=== PATIENT | male | born 1950 | race Caucasian/White ===

== ENCOUNTER 2017-08-01 21:53 | Inpatient (IN) | payer MEDICARE ==
[~2017-08-01] VITALS: Ht 167.6 cm; Wt 59.0 kg
[2017-08-01 21:54] VITALS: O2SAT 99
[2017-08-01] MEDS ORDERED: DIPHTH/TETANUS/ACEL PERTUSSIS (BOOSTER) 0.5 ML VIAL/PFS IM ONE (21:59)
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
[2017-08-01 22:23] LABS: AUTOMATED NEUTROPHIL # 9.8 TH/MM3 (1.8-7.7); BASOPHIL # 0.1 TH/MM3 (0-0.2); BASOPHIL % 0.5 % (0.0-2.0); EOSINOPHIL # 0.1 TH/MM3 (0-0.4); EOSINOPHIL % 1.1 % (0.0-4.0); HEMATOCRIT 39.6 % (39.0-51.0); HEMOGLOBIN 12.9 GM/DL (13.0-17.0); LYMPH % 13.8 % (9.0-44.0); LYMPHOCYTE # 1.7 TH/MM3 (1.0-4.8); MEAN CELL VOLUME 91.9 FL (80.0-100.0); MEAN CORPUSCULAR HEMOGLOBIN 29.8 PG (27.0-34.0); MEAN CORPUSCULAR HGB CONC 32.5 % (32.0-36.0); MEAN PLATELET VOLUME 8.1 FL (7.0-11.0); MONOCYTE # 0.8 TH/MM3 (0-0.9); NEUT % 78.6 % (16.0-70.0); PLATELET COUNT 258 TH/MM3 (150-450); RED BLOOD COUNT 4.31 MIL/MM3 (4.50-5.90); RED CELL DISTRIBUTION WIDTH 15.1 % (11.6-17.2); WHITE BLOOD COUNT 12.5 TH/MM3 (4.0-11.0)
[2017-08-01] MEDS ORDERED: PROPOFOL 1000 MG/100 ML INJ 100 ML ONE (22:26)
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
[2017-08-01 22:46] LABS: INTERNATIONAL NORMALIZED RATIO 1.2 RATIO; PROTHROMBIN TIME - PATIENT 11.9 SEC (9.8-11.6)
[2017-08-01] MEDS ORDERED: IOHEXOL 350 MG/ML 10 ML VIAL (for RAD DIAG) IVCONTRAST ONE (22:48)
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
[2017-08-01] MEDS ORDERED: ONDANSETRON HCL 4 MG/2 ML VIAL IV PUSH PRN (23:00)
[2017-08-01] MEDS ORDERED: NURSING INFORMATION XX SCH (23:00)
[2017-08-01] MEDS ORDERED: CHLORHEXIDINE GLUCONATE 2 % 1 PACK (2 CLOTHS) TOP PRN (23:00)
[2017-08-01] MEDS ORDERED: MORPHINE SULFATE 8 MG/ML INJ IV PUSH PRN (23:00)
[2017-08-01] MEDS ORDERED: ENALAPRILAT 1.25 MG/ML VIAL IV PUSH PRN (23:00)
[2017-08-01] MEDS ORDERED: PANTOPRAZOLE SODIUM 40 MG VIAL IVP SCH (23:00)
[2017-08-01] MEDS ORDERED: DOCUSATE SODIUM 100 MG CAP PO SCH (23:00)
[2017-08-01 23:05] VITALS: O2SAT 100
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
[2017-08-01 23:55] LABS: BILIRUBIN, URINE NEG (NEG); BLOOD, URINE LARGE (NEG); GLUCOSE,URINE NEG (NEG); KETONE, URINE 10 mg/dL (NEG); MUCUS URINE FEW /lpf (OCC); NITRITE,URINE NEG (NEG); PH, URINE 5.5 (5.0-8.5); URINE LEUKOCYTE ESTERASE NEG (NEG)
[2017-08-02] VITALS (19 sets, daily range): BP systolic 108–127; BP diastolic 55–64; PULSE 74–96; RESP 16–26; TEMP 97.6–99.2; O2SAT 100
[2017-08-02 00:01] LABS: URINE COLOR LIGHT-RED (YELLW/STRAW)
[2017-08-02] MEDS: SODIUM CHLOR 0.9% 1000 ML INJ 1,000 ML IV SCH ×4 (00:57→23:50)
[2017-08-02] MEDS: levETIRAcetam 500 MG/NS 100 ML IV SCH ×6 (00:58→23:50)
[2017-08-02] MEDS: CHLORHEXIDINE GLUCONATE 2 % 1 PACK (2 CLOTHS) TOP SCH ×2 (00:58→23:50)
[2017-08-02] MEDS: BACITRACIN TOP OINT 15 GM TUBE TOP SCH ×3 (00:58→21:15)
[2017-08-02] MEDS: fentaNYL 2,500 MCG/NS 250 ML IV PRN ×2 (00:58→23:51)
[2017-08-02] MEDS: PROPOFOL 1000 MG/100 ML IV PRN ×3 (00:59→14:15)
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
[2017-08-02 03:44] LABS: BICARBONATE 25.1 MEQ/L (21.0-32.0); CALCIUM 7.7 MG/DL (8.5-10.1); CREATININE 1.02 MG/DL (0.60-1.30)
[2017-08-02 03:47] LABS: AUTOMATED NEUTROPHIL # 13.4 TH/MM3 (1.8-7.7); BASOPHIL % 0.3 % (0.0-2.0); EOSINOPHIL % 0.2 % (0.0-4.0); HEMATOCRIT 39.6 % (39.0-51.0); LYMPH % 8.1 % (9.0-44.0); LYMPHOCYTE # 1.3 TH/MM3 (1.0-4.8); MEAN CELL VOLUME 90.7 FL (80.0-100.0); MEAN CORPUSCULAR HEMOGLOBIN 29.6 PG (27.0-34.0); MEAN CORPUSCULAR HGB CONC 32.7 % (32.0-36.0); MEAN PLATELET VOLUME 8.8 FL (7.0-11.0); MONO % 7.3 % (0.0-8.0); MONOCYTE # 1.2 TH/MM3 (0-0.9); NEUT % 84.1 % (16.0-70.0); PLATELET COUNT 254 TH/MM3 (150-450); RED BLOOD COUNT 4.37 MIL/MM3 (4.50-5.90); RED CELL DISTRIBUTION WIDTH 14.9 % (11.6-17.2); WHITE BLOOD COUNT 15.9 TH/MM3 (4.0-11.0)
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
[2017-08-02] MEDS ORDERED: BISACODYL 10 MG SUPP RECTAL PRN (06:45)
[2017-08-02] MEDS ORDERED: POTASSIUM PHOSPHATE MONOBASIC 500 MG TAB PO/TUBE PRN (06:45)
[2017-08-02] MEDS ORDERED: POTASSIUM PHOSPHATE MONOBASIC 500 MG TAB PO PRN (06:45)
[2017-08-02] MEDS ORDERED: MAGNESIUM OXIDE 400 MG TAB PO PRN (06:45)
[2017-08-02] MEDS ORDERED: POTASSIUM CHLOR 20 MEQ PREMIX 100 ML IV PRN (06:45)
[2017-08-02] MEDS ORDERED: POTASSIUM PHOSPHATE INJ 30 MMOL in SODIUM CHLOR 0.9% 250 ML INJ 250 ML IV PRN (06:45)
[2017-08-02] MEDS ORDERED: MAGNESIUM SULFATE INJ 2 GM in SODIUM CHLORIDE 0.9% INJ 96 ML IV PRN (06:45)
[2017-08-02] MEDS ORDERED: SODIUM PHOSPHATE INJ 30 MMOL in SODIUM CHLOR 0.9% 250 ML INJ 240 ML IV PRN (06:45)
[2017-08-02] MEDS ORDERED: MAGNESIUM SULFATE INJ 4 GM in SODIUM CHLORIDE 0.9% INJ 92 ML IV PRN (06:45)
[2017-08-02] MEDS ORDERED: POTASSIUM CHLOR 40 MEQ PREMIX 100 ML IV PRN ×2 (06:45)
[2017-08-02] MEDS: LACTULOSE SYRUP 20 GM/30 ML CUP PO SCH (09:00)
[2017-08-02] MEDS: DOCUSATE SODIUM 50 MG/SENNA 8.6 MG TAB PO SCH ×2 (09:00→21:00)
[2017-08-02] MEDS: SODIUM CHLORIDE FLUSH BID IV FLUSH SCH ×2 (09:00→21:15)
[2017-08-02] MEDS: CHLORHEXIDINE 0.12% (ORAL KIT) 15 ML CUP MT SCH ×2 (09:04→20:56)
[2017-08-02 09:35] LABS: MAGNESIUM 1.7 MG/DL (1.5-2.5)
[2017-08-02 09:36] LABS: PHOSPHORUS 2.2 MG/DL (2.5-4.9)
[2017-08-02] MEDS ORDERED: Vancomycin Consult Pharmacy 1 EA OTHER SCH (09:45)
[2017-08-02] MEDS: PIPERACIL-TAZO 4.5 GM PREMIX 100 ML IV SCH ×3 (10:16→21:15)
[2017-08-02] MEDS: VANCOMYCIN INJ 1,250 MG in SODIUM CHLOR 0.9% 250 ML INJ 250 ML IV SCH (12:03)
[2017-08-02] MEDS ORDERED: GADODIAMIDE PF 287 MG/ML 20 ML VIAL (for RAD MRI) IV PUSH ONE (14:21)
--- NOTE | 2017-08-02 14:34 | RADRPT ---
EXAM DATE/TIME: 08/02/2017 13:23 [facility] COMPARISON: CT BRAIN W/O CONTRAST, August 01, 2017, 22:15. INDICATIONS : Follow up, small acute left frontal subarachnoid or subdural blood RADIATION DOSE: 56.35 CTDIvol (mGy) MEDICAL HISTORY : None SURGICAL HISTORY : None. ENCOUNTER: Subsequent ACUITY: 2 days PAIN SCALE: 4/10 LOCATION: cranial TECHNIQUE: Multiple contiguous axial images were obtained of the head. Using automated exposure control and adj ustment of the mA and/or kV according to patient size, radiation dose was kept as low as reasonably a chievable to obtain optimal diagnostic quality images. DICOM format image data is available electro nically for review and comparison. FINDINGS: There is no evidence of acute cortical infarction, acute hemorrhage, mass effect or midline shift. No frontal lobe hematoma or subarachnoid hemorrhage is identified. Mild atrophy is present. Scalp hemat deanne is seen. CONCLUSION: 1. Atrophy. No evidence of acute intracranial hemorrhage. Ciro Steen MD on August 02, 2017 at 14:30 Board Certified Radiologist. This report was verified electronically.
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
[2017-08-02] MEDS ORDERED: CHLORHEXIDINE 0.12% (ORAL KIT) 15 ML CUP MT SCH (20:00)
[2017-08-03] VITALS (19 sets, daily range): BP systolic 96–138; BP diastolic 51–64; PULSE 62–76; RESP 16; TEMP 98–99.5; O2SAT 99–100
[2017-08-03] MEDS: PROPOFOL 1000 MG/100 ML IV PRN (03:19)
[2017-08-03] MEDS: PIPERACIL-TAZO 4.5 GM PREMIX 100 ML IV SCH ×4 (03:19→21:51)
[2017-08-03 04:52] LABS: AUTOMATED NEUTROPHIL # 9.2 TH/MM3 (1.8-7.7); BASOPHIL % 0.3 % (0.0-2.0); EOSINOPHIL % 0.3 % (0.0-4.0); HEMOGLOBIN 10.6 GM/DL (13.0-17.0); LYMPH % 5.6 % (9.0-44.0); LYMPHOCYTE # 0.6 TH/MM3 (1.0-4.8); MEAN CELL VOLUME 92.1 FL (80.0-100.0); MEAN CORPUSCULAR HEMOGLOBIN 30.4 PG (27.0-34.0); MEAN CORPUSCULAR HGB CONC 33.1 % (32.0-36.0); MEAN PLATELET VOLUME 8.4 FL (7.0-11.0); MONOCYTE # 0.9 TH/MM3 (0-0.9); NEUT % 85.8 % (16.0-70.0); PLATELET COUNT 176 TH/MM3 (150-450); RED BLOOD COUNT 3.47 MIL/MM3 (4.50-5.90); RED CELL DISTRIBUTION WIDTH 15.3 % (11.6-17.2); WHITE BLOOD COUNT 10.7 TH/MM3 (4.0-11.0)
[2017-08-03 05:17] LABS: BICARBONATE 22.3 MEQ/L (21.0-32.0); CALCIUM 7.5 MG/DL (8.5-10.1); CREATININE 0.97 MG/DL (0.60-1.30)
--- NOTE | 2017-08-03 05:57 | RADRPT ---
EXAM DATE/TIME: 08/03/2017 04:57 [place] COMPARISON: CHEST SINGLE AP, August 02, 2017, 4:27. INDICATIONS : Short of breath. MEDICAL HISTORY : None. SURGICAL HISTORY : None. ENCOUNTER: Subsequent ACUITY: 3 days PAIN SCORE: Non-responsive. LOCATION: Bilateral chest FINDINGS: A single view of the chest demonstrates minimal bibasilar densities. Endotracheal tube and nasogastri c tube unchanged.. Osseous structures are intact. CONCLUSION: Bibasilar densities likely atelectasis. Otoniel Cerda MD on August 03, 2017 at 5:55 Board Certified Radiologist. This report was verified electronically.
[2017-08-03] MEDS: VANCOMYCIN INJ 1,250 MG in SODIUM CHLOR 0.9% 250 ML INJ 250 ML IV SCH (05:58)
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
[2017-08-03] MEDS: CHLORHEXIDINE 0.12% (ORAL KIT) 15 ML CUP MT SCH ×2 (08:19→20:00)
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
[2017-08-03] MEDS: SODIUM CHLOR 0.9% 1000 ML INJ 1,000 ML IV SCH (09:30)
[2017-08-03] MEDS: LACTULOSE SYRUP 20 GM/30 ML CUP PO SCH (10:05)
[2017-08-03] MEDS: NEOMYCIN/POLYMYXIN/BACITRACIN OINT 15 GM TUBE TOPICAL SCH (10:05)
[2017-08-03] MEDS: SODIUM HYPOCHLORITE 0.125% 500 ML BTL TOPICAL SCH (10:05)
[2017-08-03] MEDS: DOCUSATE SODIUM 50 MG/SENNA 8.6 MG TAB PO SCH ×2 (10:05→21:50)
[2017-08-03] MEDS: ASPIRIN 325 MG TAB PO SCH (10:05)
[2017-08-03] MEDS: FAMOTIDINE 40 MG/5 ML LIQ 50 ML BTL OG-TUBE SCH ×2 (10:05→21:51)
[2017-08-03] MEDS: BACITRACIN TOP OINT 15 GM TUBE TOP SCH ×2 (10:05→21:51)
[2017-08-03] MEDS: SODIUM CHLORIDE FLUSH BID IV FLUSH SCH ×2 (10:05→21:00)
[2017-08-03] MEDS: ENOXAPARIN SODIUM 40 MG/0.4 ML SYRINGE SQ SCH (11:01)
[2017-08-03] MEDS: levETIRAcetam 500 MG/NS 100 ML IV SCH ×2 (12:25)
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
[2017-08-04] VITALS (19 sets, daily range): BP systolic 116–139; BP diastolic 55–63; PULSE 73–89; RESP 16; TEMP 98–99.5; O2SAT 97–100
[2017-08-04] MEDS: SODIUM CHLOR 0.9% 1000 ML INJ 1,000 ML IV SCH ×3 (01:32→21:40)
[2017-08-04] MEDS: fentaNYL 2,500 MCG/NS 250 ML IV PRN (02:01)
[2017-08-04] MEDS: CHLORHEXIDINE GLUCONATE 2 % 1 PACK (2 CLOTHS) TOP SCH (03:34)
[2017-08-04] MEDS: PIPERACIL-TAZO 4.5 GM PREMIX 100 ML IV SCH ×4 (04:52→21:40)
--- NOTE | 2017-08-04 05:34 | RADRPT ---
EXAM DATE/TIME: 08/04/2017 04:45 [place] COMPARISON: CHEST SINGLE AP, August 03, 2017, 4:57. INDICATIONS : Shortness of breath. MEDICAL HISTORY : Non-responsive SURGICAL HISTORY : Non-responsive ENCOUNTER: Subsequent ACUITY: 4 - 6 days PAIN SCORE: Non-responsive. LOCATION: Bilateral chest FINDINGS: A single view of the chest demonstrates minimal right basilar density. Endotracheal tube and nasogast odette tube unchanged. Osseous structures are intact. CONCLUSION: Minimal right basilar density. Otoniel Cerda MD on August 04, 2017 at 5:32 Board Certified Radiologist. This report was verified electronically.
[2017-08-04 06:06] LABS: AUTOMATED NEUTROPHIL # 9.4 TH/MM3 (1.8-7.7); BASOPHIL # 0.1 TH/MM3 (0-0.2); BASOPHIL % 0.6 % (0.0-2.0); EOSINOPHIL % 0.5 % (0.0-4.0); HEMATOCRIT 27.6 % (39.0-51.0); HEMOGLOBIN 9.2 GM/DL (13.0-17.0); LYMPHOCYTE # 0.7 TH/MM3 (1.0-4.8); MEAN CELL VOLUME 91.4 FL (80.0-100.0); MEAN CORPUSCULAR HEMOGLOBIN 30.4 PG (27.0-34.0); MEAN CORPUSCULAR HGB CONC 33.3 % (32.0-36.0); MEAN PLATELET VOLUME 8.7 FL (7.0-11.0); MONO % 7.2 % (0.0-8.0); MONOCYTE # 0.8 TH/MM3 (0-0.9); NEUT % 85.7 % (16.0-70.0); PLATELET COUNT 187 TH/MM3 (150-450); RED BLOOD COUNT 3.02 MIL/MM3 (4.50-5.90)
[2017-08-04 06:35] LABS: CALCIUM 7.9 MG/DL (8.5-10.1); CREATININE 1.5 MG/DL (0.60-1.30)
[2017-08-04] MEDS: CHLORHEXIDINE 0.12% (ORAL KIT) 15 ML CUP MT SCH ×2 (08:00→21:40)
[2017-08-04] MEDS: SODIUM CHLORIDE FLUSH BID IV FLUSH SCH ×2 (08:09→21:00)
[2017-08-04] MEDS: SODIUM HYPOCHLORITE 0.125% 500 ML BTL TOPICAL SCH (08:10)
[2017-08-04] MEDS: NEOMYCIN/POLYMYXIN/BACITRACIN OINT 15 GM TUBE TOPICAL SCH (08:10)
[2017-08-04] MEDS: BACITRACIN TOP OINT 15 GM TUBE TOP SCH ×2 (08:10→21:00)
[2017-08-04] MEDS: LACTULOSE SYRUP 20 GM/30 ML CUP PO SCH (09:00)
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
[2017-08-04] MEDS: FAMOTIDINE 40 MG/5 ML LIQ 50 ML BTL OG-TUBE SCH ×2 (10:47→21:00)
[2017-08-04] MEDS: ASPIRIN 325 MG TAB PO SCH (10:47)
[2017-08-04] MEDS: ENOXAPARIN SODIUM 40 MG/0.4 ML SYRINGE SQ SCH (10:48)
[2017-08-04] MEDS: DOCUSATE SODIUM 50 MG/SENNA 8.6 MG TAB PO SCH ×2 (10:48→21:40)
[2017-08-04] MEDS: levETIRAcetam 500 MG/NS 100 ML IV SCH ×4 (10:48)
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
[2017-08-04] MEDS: PROPOFOL 1000 MG/100 ML IV PRN (13:25)
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
[2017-08-04] MEDS ORDERED: PHARMACY ORDERED LAB ONE (17:45)
[2017-08-04] MEDS: VANCOMYCIN INJ 1,250 MG in SODIUM CHLOR 0.9% 250 ML INJ 250 ML IV SCH ×3 (18:05)
[2017-08-05] VITALS (22 sets, daily range): BP systolic 118–163; BP diastolic 58–75; PULSE 85–110; RESP 16–24; TEMP 98.1–99.7; O2SAT 93–100
[2017-08-05] MEDS: PIPERACIL-TAZO 4.5 GM PREMIX 100 ML IV SCH ×4 (04:00→22:03)
[2017-08-05] MEDS: CHLORHEXIDINE GLUCONATE 2 % 1 PACK (2 CLOTHS) TOP SCH ×2 (04:00→19:15)
[2017-08-05] MEDS: PROPOFOL 1000 MG/100 ML IV PRN (04:40)
[2017-08-05] MEDS ORDERED: PHARMACY ORDERED LAB ONE (05:00)
[2017-08-05] MEDS: SODIUM CHLOR 0.9% 1000 ML INJ 1,000 ML IV SCH ×2 (05:51→16:57)
[2017-08-05] MEDS ORDERED: VANCOMYCIN INJ 1,250 MG in SODIUM CHLOR 0.9% 250 ML INJ 250 ML IV SCH (06:00)
--- NOTE | 2017-08-05 06:09 | RADRPT ---
EXAM DATE/TIME: 08/05/2017 04:27 [facility] COMPARISON: CHEST SINGLE AP, August 04, 2017, 4:45. INDICATIONS : Shortness of breath. MEDICAL HISTORY : Non-responsive SURGICAL HISTORY : Non-responsive ENCOUNTER: Subsequent ACUITY: 4 - 6 days PAIN SCORE: Non-responsive. LOCATION: Bilateral chest FINDINGS: A single view of the chest demonstrates a minimal bibasilar densities. Heart normal in size. Endotrac heal tube nasogastric tube unchanged. The cardiomediastinal contours are unremarkable. Osseous stru ctures are intact. CONCLUSION: Minimal bibasilar densities. Otoniel Cerda MD on August 05, 2017 at 6:08 Board Certified Radiologist. This report was verified electronically.
[2017-08-05 07:26] LABS: BASOPHIL # 0.1 TH/MM3 (0-0.2); BASOPHIL % 0.6 % (0.0-2.0); EOSINOPHIL # 0.1 TH/MM3 (0-0.4); EOSINOPHIL % 1.7 % (0.0-4.0); HEMATOCRIT 21.3 % (39.0-51.0); HEMOGLOBIN 7.2 GM/DL (13.0-17.0); LYMPH % 8.3 % (9.0-44.0); LYMPHOCYTE # 0.7 TH/MM3 (1.0-4.8); MEAN CELL VOLUME 91.1 FL (80.0-100.0); MEAN CORPUSCULAR HEMOGLOBIN 30.6 PG (27.0-34.0); MEAN CORPUSCULAR HGB CONC 33.7 % (32.0-36.0); MEAN PLATELET VOLUME 8.9 FL (7.0-11.0); MONOCYTE # 0.6 TH/MM3 (0-0.9); NEUT % 82.4 % (16.0-70.0); PLATELET COUNT 187 TH/MM3 (150-450); RED BLOOD COUNT 2.34 MIL/MM3 (4.50-5.90); RED CELL DISTRIBUTION WIDTH 15.1 % (11.6-17.2); WHITE BLOOD COUNT 8.5 TH/MM3 (4.0-11.0)
[2017-08-05 07:44] LABS: BICARBONATE 25.4 MEQ/L (21.0-32.0); CALCIUM 7.9 MG/DL (8.5-10.1); CREATININE 1.49 MG/DL (0.60-1.30)
[2017-08-05 07:56] LABS: VANCOMYCIN TROUGH 18.1 MCG/ML (5.0-10.0)
[2017-08-05] MEDS: CHLORHEXIDINE 0.12% (ORAL KIT) 15 ML CUP MT SCH ×2 (08:00→20:00)
[2017-08-05] MEDS: SODIUM CHLORIDE FLUSH BID IV FLUSH SCH ×2 (08:30→20:43)
[2017-08-05] MEDS: DOCUSATE SODIUM 50 MG/SENNA 8.6 MG TAB PO SCH ×2 (09:00→20:44)
[2017-08-05] MEDS: ASPIRIN 325 MG TAB PO SCH (09:00)
[2017-08-05] MEDS: SODIUM HYPOCHLORITE 0.125% 500 ML BTL TOPICAL SCH (09:00)
[2017-08-05] MEDS: NEOMYCIN/POLYMYXIN/BACITRACIN OINT 15 GM TUBE TOPICAL SCH (09:00)
[2017-08-05] MEDS: LACTULOSE SYRUP 20 GM/30 ML CUP PO SCH (09:00)
[2017-08-05] MEDS: BACITRACIN TOP OINT 15 GM TUBE TOP SCH ×2 (09:00→20:43)
[2017-08-05] MEDS ORDERED: SODIUM CHLOR 0.9% 250 ML INJ 250 ML IV ONE (09:30)
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
[2017-08-05] MEDS: ENOXAPARIN SODIUM 40 MG/0.4 ML SYRINGE SQ SCH (09:41)
[2017-08-05] MEDS: FAMOTIDINE 40 MG/5 ML LIQ 50 ML BTL OG-TUBE SCH ×2 (09:41→20:44)
[2017-08-05] MEDS ORDERED: IOHEXOL 350 MG/ML 10 ML VIAL (for RAD DIAG) IVCONTRAST ONE (11:05)
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
[2017-08-05] MEDS: levETIRAcetam 500 MG/NS 100 ML IV SCH ×6 (12:47→23:56)
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
[2017-08-05] MEDS: FREE WATER G-TUBE SCH ×3 (14:00→23:56)
[2017-08-05] MEDS: VANCOMYCIN INJ 1,250 MG in SODIUM CHLOR 0.9% 250 ML INJ 250 ML IV SCH (18:24)
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
[2017-08-06] VITALS (19 sets, daily range): BP systolic 123–153; BP diastolic 5–75; PULSE 81–105; RESP 15–17; TEMP 97.9–99.4; O2SAT 100
[2017-08-06] MEDS: SODIUM CHLOR 0.9% 1000 ML INJ 1,000 ML IV SCH (01:05)
[2017-08-06] MEDS: PIPERACIL-TAZO 4.5 GM PREMIX 100 ML IV SCH ×3 (04:13→15:50)
[2017-08-06 05:28] LABS: AUTOMATED NEUTROPHIL # 6.6 TH/MM3 (1.8-7.7); BASOPHIL % 0.5 % (0.0-2.0); EOSINOPHIL # 0.2 TH/MM3 (0-0.4); EOSINOPHIL % 2.3 % (0.0-4.0); HEMATOCRIT 26.2 % (39.0-51.0); LYMPH % 6.3 % (9.0-44.0); LYMPHOCYTE # 0.5 TH/MM3 (1.0-4.8); MEAN CELL VOLUME 86.5 FL (80.0-100.0); MEAN CORPUSCULAR HEMOGLOBIN 29.8 PG (27.0-34.0); MEAN CORPUSCULAR HGB CONC 34.5 % (32.0-36.0); MEAN PLATELET VOLUME 8.5 FL (7.0-11.0); MONO % 7.8 % (0.0-8.0); MONOCYTE # 0.6 TH/MM3 (0-0.9); NEUT % 83.1 % (16.0-70.0); PLATELET COUNT 205 TH/MM3 (150-450); RED BLOOD COUNT 3.03 MIL/MM3 (4.50-5.90); RED CELL DISTRIBUTION WIDTH 17.2 % (11.6-17.2); WHITE BLOOD COUNT 7.9 TH/MM3 (4.0-11.0)
[2017-08-06] MEDS: FREE WATER G-TUBE SCH ×3 (05:40→18:00)
[2017-08-06 05:51] LABS: ALBUMIN 1.8 GM/DL (3.4-5.0); ALT (GPT) 22 U/L (12-78); AST (GOT) 40 U/L (15-37); BICARBONATE 26.3 MEQ/L (21.0-32.0); BLOOD UREA NITROGEN 14 MG/DL (7-18); CALCIUM 7.9 MG/DL (8.5-10.1); CHLORIDE 118 MEQ/L (98-107); CREATININE 1.32 MG/DL (0.60-1.30); GLOMERULAR FILTRATION RATE 54 ML/MIN (>89); GLUCOSE,RANDOM 137 MG/DL (74-106); SODIUM (NA) 151 MEQ/L (136-145)
[2017-08-06 05:53] LABS: ALKALINE PHOSPHATASE 149 U/L (45-117); TOTAL BILIRUBIN ADULT 0.6 MG/DL (0.2-1.0); TOTAL PROTEIN 5.7 GM/DL (6.4-8.2)
[2017-08-06] MEDS: CHLORHEXIDINE 0.12% (ORAL KIT) 15 ML CUP MT SCH ×2 (08:00→20:00)
[2017-08-06] MEDS: SODIUM CHLORIDE FLUSH BID IV FLUSH SCH ×2 (08:57→21:00)
[2017-08-06] MEDS: NEOMYCIN/POLYMYXIN/BACITRACIN OINT 15 GM TUBE TOPICAL SCH (08:58)
[2017-08-06] MEDS: BACITRACIN TOP OINT 15 GM TUBE TOP SCH ×2 (08:58→21:00)
[2017-08-06] MEDS: SODIUM HYPOCHLORITE 0.125% 500 ML BTL TOPICAL SCH (08:58)
[2017-08-06] MEDS: FAMOTIDINE 40 MG/5 ML LIQ 50 ML BTL OG-TUBE SCH ×2 (09:00→21:00)
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
[2017-08-06] MEDS ORDERED: FUROSEMIDE 40 MG/4 ML VIAL IV PUSH ONE ×2 (10:00→16:00)
[2017-08-06] MEDS: fentaNYL 2,500 MCG/NS 250 ML IV PRN (10:00)
[2017-08-06] MEDS ORDERED: BISACODYL 10 MG SUPP RECTAL ONE (10:00)
[2017-08-06] MEDS: DOCUSATE SODIUM 50 MG/SENNA 8.6 MG TAB PO SCH ×2 (10:05→21:00)
[2017-08-06] MEDS: LACTULOSE SYRUP 20 GM/30 ML CUP PO SCH (10:06)
[2017-08-06] MEDS: ASPIRIN 325 MG TAB PO SCH (10:06)
[2017-08-06] MEDS: ENOXAPARIN SODIUM 40 MG/0.4 ML SYRINGE SQ SCH (12:26)
[2017-08-06] MEDS: levETIRAcetam 500 MG/NS 100 ML IV SCH ×2 (12:26)
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
[2017-08-06] MEDS: PROPOFOL 1000 MG/100 ML IV PRN (15:00)
[2017-08-06] MEDS: VANCOMYCIN INJ 1,250 MG in SODIUM CHLOR 0.9% 250 ML INJ 250 ML IV SCH (18:15)
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
[2017-08-06] MEDS: RESP: ALBUTEROL 2.5 MG/IPRATROPIUM 0.5 MG NEB (PRN) NEB (20:32)
[2017-08-06] MEDS: cefTRIAXone INJ 1,000 MG in SODIUM CHLORIDE 0.9% INJ 100 ML IV SCH (21:20)
[2017-08-07] VITALS (18 sets, daily range): BP systolic 125–164; BP diastolic 61–77; PULSE 73–118; RESP 16–26; TEMP 98.6–99.5; O2SAT 99–100
[2017-08-07] MEDS: levETIRAcetam 500 MG/NS 100 ML IV SCH ×4 (00:04→11:01)
[2017-08-07] MEDS: CHLORHEXIDINE GLUCONATE 2 % 1 PACK (2 CLOTHS) TOP SCH (04:00)
--- NOTE | 2017-08-07 04:19 | RADRPT ---
EXAM DATE/TIME: 08/07/2017 03:38 [place] COMPARISON: CHEST SINGLE AP, August 05, 2017, 4:27. INDICATIONS : Shortness of breath MEDICAL HISTORY : Non-responsive SURGICAL HISTORY : Non-responsive ENCOUNTER: Subsequent ACUITY: 1 week PAIN SCORE: Non-responsive. LOCATION: Bilateral chest FINDINGS: The cardiac silhouette is enlarged in transverse diameter. There is prominence of the central pulmona ry vasculature with indistinct vascular margins compatible with vascular congestion but no evidence o f overt failure. No pleural effusions are identified. CONCLUSION: 1. Cardiomegaly and findings of vascular congestion without overt failure. The findings are similar t o the prior exam. Ciro Steen MD on August 07, 2017 at 4:17 Board Certified Radiologist. This report was verified electronically.
[2017-08-07] MEDS: FREE WATER G-TUBE SCH ×4 (05:12→17:02)
[2017-08-07] MEDS: PROPOFOL 1000 MG/100 ML IV PRN (05:12)
[2017-08-07 05:35] LABS: AUTOMATED NEUTROPHIL # 7.1 TH/MM3 (1.8-7.7); BASOPHIL % 0.2 % (0.0-2.0); EOSINOPHIL # 0.1 TH/MM3 (0-0.4); EOSINOPHIL % 1.6 % (0.0-4.0); HEMATOCRIT 26.4 % (39.0-51.0); HEMOGLOBIN 9.2 GM/DL (13.0-17.0); LYMPH % 8.1 % (9.0-44.0); LYMPHOCYTE # 0.7 TH/MM3 (1.0-4.8); MEAN CELL VOLUME 85.7 FL (80.0-100.0); MEAN CORPUSCULAR HEMOGLOBIN 29.7 PG (27.0-34.0); MEAN CORPUSCULAR HGB CONC 34.7 % (32.0-36.0); MEAN PLATELET VOLUME 8.5 FL (7.0-11.0); MONO % 8.9 % (0.0-8.0); MONOCYTE # 0.8 TH/MM3 (0-0.9); NEUT % 81.2 % (16.0-70.0); PLATELET COUNT 270 TH/MM3 (150-450); RED BLOOD COUNT 3.08 MIL/MM3 (4.50-5.90); RED CELL DISTRIBUTION WIDTH 16.7 % (11.6-17.2); WHITE BLOOD COUNT 8.7 TH/MM3 (4.0-11.0)
[2017-08-07 06:16] LABS: ALKALINE PHOSPHATASE 163 U/L (45-117); ALT (GPT) 29 U/L (12-78); AST (GOT) 47 U/L (15-37); BICARBONATE 30.8 MEQ/L (21.0-32.0); BLOOD UREA NITROGEN 19 MG/DL (7-18); CALCIUM 8.8 MG/DL (8.5-10.1); CHLORIDE 111 MEQ/L (98-107); CREATININE 1.57 MG/DL (0.60-1.30); GLOMERULAR FILTRATION RATE 44 ML/MIN (>89); GLUCOSE,RANDOM 144 MG/DL (74-106); SODIUM (NA) 150 MEQ/L (136-145); TOTAL BILIRUBIN ADULT 0.5 MG/DL (0.2-1.0); TOTAL PROTEIN 6.5 GM/DL (6.4-8.2)
[2017-08-07] MEDS: POTASSIUM CHLOR 20 MEQ PREMIX 100 ML IV PRN ×2 (06:38→08:36)
[2017-08-07] MEDS: POTASSIUM CHLORIDE 20 MEQ PWD PACKET PO PRN ×2 (06:38→20:21)
[2017-08-07] MEDS: SODIUM CHLORIDE FLUSH BID IV FLUSH SCH ×2 (08:29→20:20)
[2017-08-07] MEDS: DOCUSATE SODIUM 50 MG/SENNA 8.6 MG TAB PO SCH ×2 (08:29→20:20)
[2017-08-07] MEDS: CHLORHEXIDINE 0.12% (ORAL KIT) 15 ML CUP MT SCH ×2 (08:29→20:00)
[2017-08-07] MEDS: ASPIRIN 325 MG TAB PO SCH (08:30)
[2017-08-07] MEDS: LACTULOSE SYRUP 20 GM/30 ML CUP PO SCH (08:30)
[2017-08-07] MEDS: FAMOTIDINE 40 MG/5 ML LIQ 50 ML BTL OG-TUBE SCH ×2 (08:30→20:20)
[2017-08-07] MEDS: SODIUM HYPOCHLORITE 0.125% 500 ML BTL TOPICAL SCH (08:31)
[2017-08-07] MEDS: NEOMYCIN/POLYMYXIN/BACITRACIN OINT 15 GM TUBE TOPICAL SCH (08:31)
[2017-08-07] MEDS: BACITRACIN TOP OINT 15 GM TUBE TOP SCH ×2 (08:31→21:00)
[2017-08-07] MEDS: ENOXAPARIN SODIUM 40 MG/0.4 ML SYRINGE SQ SCH (10:57)
[2017-08-07] MEDS: oxyCODONE HCL ORAL CONC 5 MG/0.25 ML SYRINGE PO SCH ×4 (10:57→20:19)
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
[2017-08-07] MEDS ORDERED: PHARMACY ORDERED LAB ONE (17:45)
[2017-08-07] MEDS: cefTRIAXone INJ 1,000 MG in SODIUM CHLORIDE 0.9% INJ 100 ML IV SCH (20:19)
[2017-08-08] VITALS (16 sets, daily range): BP systolic 117–193; BP diastolic 72–92; PULSE 68–140; RESP 17–33; TEMP 98–99.1; O2SAT 98–100
[2017-08-08] MEDS: levETIRAcetam 500 MG/NS 100 ML IV SCH ×4 (00:01→12:39)
[2017-08-08] MEDS: oxyCODONE HCL ORAL CONC 5 MG/0.25 ML SYRINGE PO SCH ×6 (02:31→21:03)
[2017-08-08] MEDS: CHLORHEXIDINE GLUCONATE 2 % 1 PACK (2 CLOTHS) TOP SCH (03:58)
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
[2017-08-08] MEDS: FREE WATER G-TUBE SCH ×4 (06:00→17:29)
[2017-08-08] MEDS: LACTULOSE SYRUP 20 GM/30 ML CUP PO SCH (08:17)
[2017-08-08] MEDS: ASPIRIN 325 MG TAB PO SCH (08:17)
[2017-08-08] MEDS: CHLORHEXIDINE 0.12% (ORAL KIT) 15 ML CUP MT SCH ×2 (08:17→20:00)
[2017-08-08] MEDS: SODIUM CHLORIDE FLUSH BID IV FLUSH SCH ×2 (08:17→21:00)
[2017-08-08] MEDS: DOCUSATE SODIUM 50 MG/SENNA 8.6 MG TAB PO SCH ×2 (08:17→20:24)
[2017-08-08] MEDS: NEOMYCIN/POLYMYXIN/BACITRACIN OINT 15 GM TUBE TOPICAL SCH (08:20)
[2017-08-08] MEDS: SODIUM HYPOCHLORITE 0.125% 500 ML BTL TOPICAL SCH (08:20)
[2017-08-08] MEDS: BACITRACIN TOP OINT 15 GM TUBE TOP SCH ×2 (08:20→21:00)
[2017-08-08] MEDS: FAMOTIDINE 40 MG/5 ML LIQ 50 ML BTL OG-TUBE SCH ×2 (08:20→21:03)
[2017-08-08] MEDS: ENOXAPARIN SODIUM 40 MG/0.4 ML SYRINGE SQ SCH (10:21)
[2017-08-08] MEDS: cefTRIAXone INJ 1,000 MG in SODIUM CHLORIDE 0.9% INJ 100 ML IV SCH (21:02)
[2017-08-09] VITALS (17 sets, daily range): BP systolic 118–148; BP diastolic 58–70; PULSE 88–108; RESP 14–24; TEMP 98.6–99.6; O2SAT 99–100
[2017-08-09] MEDS: oxyCODONE HCL ORAL CONC 5 MG/0.25 ML SYRINGE PO SCH ×6 (01:23→21:41)
[2017-08-09] MEDS: levETIRAcetam 500 MG/NS 100 ML IV SCH ×4 (01:23→12:17)
[2017-08-09] MEDS: CHLORHEXIDINE GLUCONATE 2 % 1 PACK (2 CLOTHS) TOP SCH ×2 (03:20→19:41)
[2017-08-09 04:29] LABS: AUTOMATED NEUTROPHIL # 8.5 TH/MM3 (1.8-7.7); BASOPHIL # 0.1 TH/MM3 (0-0.2); BASOPHIL % 0.5 % (0.0-2.0); EOSINOPHIL # 0.4 TH/MM3 (0-0.4); EOSINOPHIL % 3.3 % (0.0-4.0); HEMATOCRIT 25.5 % (39.0-51.0); HEMOGLOBIN 8.4 GM/DL (13.0-17.0); LYMPH % 11.6 % (9.0-44.0); LYMPHOCYTE # 1.3 TH/MM3 (1.0-4.8); MEAN CELL VOLUME 86.8 FL (80.0-100.0); MEAN CORPUSCULAR HEMOGLOBIN 28.7 PG (27.0-34.0); MEAN PLATELET VOLUME 8.3 FL (7.0-11.0); MONO % 11.4 % (0.0-8.0); MONOCYTE # 1.3 TH/MM3 (0-0.9); NEUT % 73.2 % (16.0-70.0); PLATELET COUNT 349 TH/MM3 (150-450); RED BLOOD COUNT 2.94 MIL/MM3 (4.50-5.90); WHITE BLOOD COUNT 11.6 TH/MM3 (4.0-11.0)
[2017-08-09 04:43] LABS: ALT (GPT) 44 U/L (12-78); AST (GOT) 51 U/L (15-37); BLOOD UREA NITROGEN 22 MG/DL (7-18); CALCIUM 8.6 MG/DL (8.5-10.1); CHLORIDE 109 MEQ/L (98-107); CREATININE 1.29 MG/DL (0.60-1.30); GLOMERULAR FILTRATION RATE 55 ML/MIN (>89); GLUCOSE,RANDOM 118 MG/DL (74-106); SODIUM (NA) 146 MEQ/L (136-145)
[2017-08-09 04:45] LABS: ALKALINE PHOSPHATASE 118 U/L (45-117); TOTAL BILIRUBIN ADULT 0.4 MG/DL (0.2-1.0); TOTAL PROTEIN 6.3 GM/DL (6.4-8.2)
--- NOTE | 2017-08-09 05:42 | RADRPT ---
EXAM DATE/TIME: 08/09/2017 04:52 [facility] COMPARISON: CHEST SINGLE AP, August 07, 2017, 3:38. INDICATIONS : Short of breath. MEDICAL HISTORY : None. SURGICAL HISTORY : None. ENCOUNTER: Subsequent ACUITY: 1 week PAIN SCORE: 0/10 LOCATION: Bilateral chest FINDINGS: Very mild bibasilar atelectasis again seen without significant change. No large effusion. No pneumoth orax. Endotracheal tube tip is approximately 5 cm above the navya. Nasogastric tube courses into the stoma ch. CONCLUSION: No significant change. Ángel Bains MD on August 09, 2017 at 5:40 Board Certified Radiologist. This report was verified electronically.
[2017-08-09] MEDS: FREE WATER G-TUBE SCH ×4 (06:00→17:56)
[2017-08-09] MEDS: fentaNYL 2,500 MCG/NS 250 ML IV PRN (06:45)
[2017-08-09] MEDS: NEOMYCIN/POLYMYXIN/BACITRACIN OINT 15 GM TUBE TOPICAL SCH (09:00)
[2017-08-09] MEDS: DOCUSATE SODIUM 50 MG/SENNA 8.6 MG TAB PO SCH ×2 (09:00→19:59)
[2017-08-09] MEDS: BACITRACIN TOP OINT 15 GM TUBE TOP SCH ×2 (09:00→19:59)
[2017-08-09] MEDS: FAMOTIDINE 40 MG/5 ML LIQ 50 ML BTL OG-TUBE SCH ×2 (09:00→19:59)
[2017-08-09] MEDS: SODIUM HYPOCHLORITE 0.125% 500 ML BTL TOPICAL SCH (09:00)
[2017-08-09] MEDS: SODIUM CHLORIDE FLUSH BID IV FLUSH SCH ×2 (09:00→19:57)
[2017-08-09] MEDS: LACTULOSE SYRUP 20 GM/30 ML CUP PO SCH (09:52)
[2017-08-09] MEDS: ASPIRIN 325 MG TAB PO SCH (09:52)
[2017-08-09] MEDS: CHLORHEXIDINE 0.12% (ORAL KIT) 15 ML CUP MT SCH ×2 (11:11→19:57)
[2017-08-09] MEDS: ENOXAPARIN SODIUM 40 MG/0.4 ML SYRINGE SQ SCH (11:11)
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
[2017-08-09] MEDS: HALOPERIDOL LACTATE 5 MG/ML AMP IV PUSH PRN (14:46)
[2017-08-09] MEDS: DEXMEDETOMIDINE INJ 200 MCG in SODIUM CHLORIDE 0.9% INJ 50 ML IV PRN ×2 (14:52→23:05)
[2017-08-09] MEDS: QUEtiapine FUMARATE 25 MG TAB PO SCH (17:56)
[2017-08-09] MEDS: cefTRIAXone INJ 1,000 MG in SODIUM CHLORIDE 0.9% INJ 100 ML IV SCH (19:57)
[2017-08-10] VITALS (20 sets, daily range): BP systolic 101–134; BP diastolic 57–65; PULSE 78–110; RESP 16–28; TEMP 98.1–99.8; O2SAT 98–100
[2017-08-10] MEDS: RESP: ALBUTEROL 2.5 MG/IPRATROPIUM 0.5 MG NEB (PRN) NEB (00:09)
--- NOTE | 2017-08-10 01:06 | RADRPT ---
EXAM DATE/TIME: 08/10/2017 00:37 [facility] COMPARISON: No previous studies available for comparison. INDICATIONS : ET Tube placement confirmation. MEDICAL HISTORY : None. SURGICAL HISTORY : None. ENCOUNTER: Subsequent ACUITY: 1 week PAIN SCORE: 0/10 LOCATION: Bilateral chest FINDINGS: Endotracheal tube tip is approximately 5 cm above the navya. Nasogastric tube courses into the stoma ch. Mild bibasilar atelectasis. Trace pleural effusion suspected on the left. No pneumothorax. CONCLUSION: The endotracheal tube tip is approximately 5 cm above the navya. Mild bibasilar atelectasis. Ángel Bains MD on August 10, 2017 at 1:04 Board Certified Radiologist. This report was verified electronically.
[2017-08-10] MEDS: oxyCODONE HCL ORAL CONC 5 MG/0.25 ML SYRINGE PO SCH ×6 (02:45→22:12)
[2017-08-10 03:27] LABS: AUTOMATED NEUTROPHIL # 8.3 TH/MM3 (1.8-7.7); BASOPHIL % 0.2 % (0.0-2.0); EOSINOPHIL # 0.5 TH/MM3 (0-0.4); EOSINOPHIL % 4.9 % (0.0-4.0); HEMATOCRIT 27.1 % (39.0-51.0); LYMPH % 8.1 % (9.0-44.0); LYMPHOCYTE # 0.9 TH/MM3 (1.0-4.8); MEAN CELL VOLUME 88.8 FL (80.0-100.0); MEAN CORPUSCULAR HEMOGLOBIN 29.4 PG (27.0-34.0); MEAN CORPUSCULAR HGB CONC 33.1 % (32.0-36.0); MEAN PLATELET VOLUME 8.1 FL (7.0-11.0); MONO % 10.6 % (0.0-8.0); MONOCYTE # 1.2 TH/MM3 (0-0.9); NEUT % 76.2 % (16.0-70.0); PLATELET COUNT 444 TH/MM3 (150-450); RED BLOOD COUNT 3.06 MIL/MM3 (4.50-5.90); RED CELL DISTRIBUTION WIDTH 15.7 % (11.6-17.2); WHITE BLOOD COUNT 10.9 TH/MM3 (4.0-11.0)
[2017-08-10 03:39] LABS: ALT (GPT) 60 U/L (12-78); AST (GOT) 67 U/L (15-37); BICARBONATE 30.7 MEQ/L (21.0-32.0); BLOOD UREA NITROGEN 24 MG/DL (7-18); CALCIUM 8.8 MG/DL (8.5-10.1); CHLORIDE 106 MEQ/L (98-107); CREATININE 1.36 MG/DL (0.60-1.30); GLOMERULAR FILTRATION RATE 52 ML/MIN (>89); GLUCOSE,RANDOM 131 MG/DL (74-106); SODIUM (NA) 145 MEQ/L (136-145)
[2017-08-10 03:41] LABS: ALKALINE PHOSPHATASE 138 U/L (45-117); TOTAL BILIRUBIN ADULT 0.4 MG/DL (0.2-1.0); TOTAL PROTEIN 6.9 GM/DL (6.4-8.2)
[2017-08-10] MEDS: DEXMEDETOMIDINE INJ 200 MCG in SODIUM CHLORIDE 0.9% INJ 50 ML IV PRN ×2 (04:28→13:00)
[2017-08-10] MEDS: FREE WATER G-TUBE SCH ×5 (06:00→23:31)
[2017-08-10] MEDS: CHLORHEXIDINE 0.12% (ORAL KIT) 15 ML CUP MT SCH ×2 (08:00→20:32)
[2017-08-10] MEDS: ASPIRIN 325 MG TAB PO SCH (09:12)
[2017-08-10] MEDS: FAMOTIDINE 40 MG/5 ML LIQ 50 ML BTL OG-TUBE SCH (09:12)
[2017-08-10] MEDS: SODIUM CHLORIDE FLUSH BID IV FLUSH SCH ×2 (09:12→20:32)
[2017-08-10] MEDS: QUEtiapine FUMARATE 25 MG TAB PO SCH ×3 (09:12→17:34)
[2017-08-10] MEDS: LACTULOSE SYRUP 20 GM/30 ML CUP PO SCH (09:13)
[2017-08-10] MEDS: DOCUSATE SODIUM 50 MG/SENNA 8.6 MG TAB PO SCH ×2 (09:13→20:32)
[2017-08-10] MEDS: SODIUM HYPOCHLORITE 0.125% 500 ML BTL TOPICAL SCH (13:30)
[2017-08-10] MEDS: NEOMYCIN/POLYMYXIN/BACITRACIN OINT 15 GM TUBE TOPICAL SCH (13:30)
[2017-08-10] MEDS: BACITRACIN TOP OINT 15 GM TUBE TOP SCH (13:30)
[2017-08-10] MEDS: ENOXAPARIN SODIUM 40 MG/0.4 ML SYRINGE SQ SCH (14:23)
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
--- NOTE | 2017-08-10 16:21 | PD.PLAS.PN ---
Subjective Remarks Patient is intubated. Vital Signs Date Time Temp Pulse Resp B/P (MAP) Pulse Ox O2 Delivery O2 Flow Rate FiO2 08/10/17 12:12 100 30 08/10/17 12:00 83 08/10/17 12:00 98.5 83 18 117/57 (77) 100 08/10/17 12:00 30 08/10/17 10:45 30 08/10/17 10:41 100 30 08/10/17 10:00 82 08/10/17 09:00 30 08/10/17 08:53 100 30 08/10/17 08:52 30 08/10/17 08:46 100 30 08/10/17 08:00 99.8 90 17 125/65 (85) 100 08/10/17 08:00 90 08/10/17 08:00 30 08/10/17 07:00 100 Mechanical Ventilator 30 08/10/17 06:00 110 08/10/17 05:57 100 30 08/10/17 04:00 89 08/10/17 04:00 98.9 89 16 134/63 (86) 99 08/10/17 04:00 30 08/10/17 02:00 87 08/10/17 00:09 98 30 08/10/17 00:00 30 08/10/17 00:00 82 08/10/17 00:00 98.7 82 28 101/60 (74) 100 08/09/17 22:58 30 08/09/17 22:56 100 30 08/09/17 22:00 98 08/09/17 20:00 94 08/09/17 20:00 98.6 94 18 135/70 (91) 100 08/09/17 20:00 30 08/09/17 19:00 100 Mechanical Ventilator 30 08/09/17 18:00 103 08/09/17 16:23 100 30 I/O 08/09/17 08/09/17 08/09/17 08/10/17 08/10/17 08/10/17 07:00 15:00 23:00 07:00 15:00 23:00 Intake Total 778 ml 1150 ml 434 ml Output Total 800 ml 850 ml 900 ml Balance -22 ml 300 ml -466 ml Intake IV Total 419 ml 225 ml Tube Feeding 359 ml 425 ml 434 ml Other 500 ml Output Urine Total 800 ml 850 ml 900 ml # Bowel Movements 1 2 Laboratory Tests Test 08/10/17 02:54 White Blood Count 10.9 Red Blood Count 3.06 Hemoglobin 9.0 Hematocrit 27.1 Mean Corpuscular Volume 88.8 Mean Corpuscular Hemoglobin 29.4 Mean Corpuscular Hemoglobin Concent 33.1 Red Cell Distribution Width 15.7 Platelet Count 444 Mean Platelet Volume 8.1 Neutrophils (%) (Auto) 76.2 Lymphocytes (%) (Auto) 8.1 Monocytes (%) (Auto) 10.6 Eosinophils (%) (Auto) 4.9 Basophils (%) (Auto) 0.2 Neutrophils # (Auto) 8.3 Lymphocytes # (Auto) 0.9 Monocytes # (Auto) 1.2 Eosinophils # (Auto) 0.5 Basophils # (Auto) 0.0 CBC Comment DIFF FINAL Differential Comment Blood Urea Nitrogen 24 Creatinine 1.36 Random Glucose 131 Total Protein 6.9 Albumin 2.0 Calcium Level 8.8 Alkaline Phosphatase 138 Aspartate Amino Transf (AST/SGOT) 67 Alanine Aminotransferase (ALT/SGPT) 60 Total Bilirubin 0.4 Sodium Level 145 Potassium Level 3.9 Chloride Level 106 Carbon Dioxide Level 30.7 Anion Gap 8 Estimat Glomerular Filtration Rate 52 Date/Time Source Procedure Growth Status 08/02/17 11:17 Blood Peripheral Aerobic Blood Culture - Final NO GROWTH IN 5 DAYS Complete 08/02/17 11:17 Blood Peripheral Anaerobic Blood Culture - Final NO GROWTH IN 5 DAYS Complete 08/02/17 10:00 Sputum Endotracheal Gram Stain - Final Complete 08/02/17 10:00 Sputum Culture - Final Staphylococcus Aureus Enterobacter Cloacae Complete 08/01/17 23:20 Urine Catheterized Urine Urine Culture - Final NO GROWTH IN 48 HOURS. Complete Result Diagram: 08/10/17 0254 08/10/17 0254 Exam Findings Wounds are healing in without evidence of infection. Plan Impression: The wounds are healing in well. Plan: Will change to Silvadene. Will consider reconstruction when condition improves. Yaima Astorga MD Aug 10, 2017 16:21
[2017-08-10] MEDS: cefTRIAXone INJ 1,000 MG in SODIUM CHLORIDE 0.9% INJ 100 ML IV SCH (20:32)
[2017-08-10] MEDS ORDERED: FAMOTIDINE 20 MG TAB OG-TUBE SCH (21:00)
[2017-08-11] VITALS (17 sets, daily range): BP systolic 108–153; BP diastolic 59–80; PULSE 85–129; RESP 16–20; TEMP 98.3–99.5; O2SAT 96–100
[2017-08-11] MEDS: oxyCODONE HCL ORAL CONC 5 MG/0.25 ML SYRINGE PO SCH ×6 (02:34→21:06)
[2017-08-11] MEDS: CHLORHEXIDINE GLUCONATE 2 % 1 PACK (2 CLOTHS) TOP SCH (04:00)
[2017-08-11 05:24] LABS: AUTOMATED NEUTROPHIL # 11.9 TH/MM3 (1.8-7.7); BASOPHIL % 0.3 % (0.0-2.0); EOSINOPHIL # 0.5 TH/MM3 (0-0.4); EOSINOPHIL % 3.5 % (0.0-4.0); HEMOGLOBIN 9.6 GM/DL (13.0-17.0); LYMPH % 4.2 % (9.0-44.0); LYMPHOCYTE # 0.6 TH/MM3 (1.0-4.8); MEAN CELL VOLUME 88.6 FL (80.0-100.0); MEAN CORPUSCULAR HEMOGLOBIN 29.2 PG (27.0-34.0); MEAN CORPUSCULAR HGB CONC 32.9 % (32.0-36.0); MEAN PLATELET VOLUME 8.3 FL (7.0-11.0); MONO % 8.7 % (0.0-8.0); MONOCYTE # 1.2 TH/MM3 (0-0.9); NEUT % 83.3 % (16.0-70.0); PLATELET COUNT 526 TH/MM3 (150-450); RED BLOOD COUNT 3.28 MIL/MM3 (4.50-5.90); WHITE BLOOD COUNT 14.3 TH/MM3 (4.0-11.0)
--- NOTE | 2017-08-11 05:30 | RADRPT ---
EXAM DATE/TIME: 08/11/2017 04:28 [facility] COMPARISON: CHEST SINGLE AP, August 10, 2017, 0:37. INDICATIONS : Shortness of breath. MEDICAL HISTORY : Non-responsive SURGICAL HISTORY : Non-responsive ENCOUNTER: Subsequent ACUITY: 1 week PAIN SCORE: Non-responsive. LOCATION: Bilateral chest FINDINGS: Mild left base consolidation again noted, not significantly changed. Right lung is clear. No effusion seen. No pneumothorax. Endotracheal tube tip is unchanged, approximately 5 cm above the navya. Nasogastric tube courses int o the stomach. CONCLUSION: No significant change. Mild left base consolidation. Ángel Bains MD on August 11, 2017 at 5:28 Board Certified Radiologist. This report was verified electronically.
[2017-08-11] MEDS: FREE WATER G-TUBE SCH ×4 (05:40→23:51)
[2017-08-11] MEDS: HALOPERIDOL LACTATE 5 MG/ML AMP IV PUSH PRN (05:48)
[2017-08-11 05:57] LABS: ALBUMIN 2.2 GM/DL (3.4-5.0); AST (GOT) 96 U/L (15-37); BICARBONATE 30.5 MEQ/L (21.0-32.0); BLOOD UREA NITROGEN 25 MG/DL (7-18); CHLORIDE 104 MEQ/L (98-107); GLOMERULAR FILTRATION RATE 46 ML/MIN (>89); GLUCOSE,RANDOM 138 MG/DL (74-106); SODIUM (NA) 143 MEQ/L (136-145)
[2017-08-11 06:00] LABS: ALKALINE PHOSPHATASE 195 U/L (45-117); ALT (GPT) 98 U/L (12-78); TOTAL BILIRUBIN ADULT 0.4 MG/DL (0.2-1.0); TOTAL PROTEIN 7.5 GM/DL (6.4-8.2)
[2017-08-11] MEDS: DEXMEDETOMIDINE INJ 200 MCG in SODIUM CHLORIDE 0.9% INJ 50 ML IV PRN ×2 (07:08→22:27)
[2017-08-11] MEDS: DOCUSATE SODIUM 50 MG/SENNA 8.6 MG TAB PO SCH ×2 (09:00→21:00)
[2017-08-11] MEDS: LACTULOSE SYRUP 20 GM/30 ML CUP PO SCH (09:00)
[2017-08-11] MEDS: QUEtiapine FUMARATE 25 MG TAB PO SCH ×3 (09:32→17:34)
[2017-08-11] MEDS: ASPIRIN 325 MG TAB PO SCH (09:33)
[2017-08-11] MEDS: FAMOTIDINE 20 MG TAB OG-TUBE SCH ×2 (09:33→21:05)
[2017-08-11] MEDS: SODIUM CHLORIDE FLUSH BID IV FLUSH SCH ×2 (09:33→21:06)
[2017-08-11] MEDS: CHLORHEXIDINE 0.12% (ORAL KIT) 15 ML CUP MT SCH ×2 (09:33→21:06)
[2017-08-11] MEDS: SILVER SULFADIAZINE 1% CR 50 GM JAR TOP SCH (09:34)
[2017-08-11] MEDS: NEOMYCIN/POLYMYXIN/BACITRACIN OINT 15 GM TUBE TOPICAL SCH (09:34)
[2017-08-11] MEDS: SODIUM HYPOCHLORITE 0.125% 500 ML BTL TOPICAL SCH (09:34)
[2017-08-11] MEDS: LACTATED RINGER'S 1000 ML INJ 1,000 ML IV SCH (12:21)
[2017-08-11] MEDS: ENOXAPARIN SODIUM 40 MG/0.4 ML SYRINGE SQ SCH (12:22)
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
[2017-08-11] MEDS: cefTRIAXone INJ 1,000 MG in SODIUM CHLORIDE 0.9% INJ 100 ML IV SCH (21:06)
[2017-08-12] VITALS (17 sets, daily range): BP systolic 99–142; BP diastolic 53–63; PULSE 78–120; RESP 16–26; TEMP 98.3–100; O2SAT 97–100
[2017-08-12] MEDS: oxyCODONE HCL ORAL CONC 5 MG/0.25 ML SYRINGE PO SCH ×5 (01:25→22:31)
[2017-08-12] MEDS: HALOPERIDOL LACTATE 5 MG/ML AMP IV PUSH PRN ×2 (01:26→05:30)
[2017-08-12] MEDS: CHLORHEXIDINE GLUCONATE 2 % 1 PACK (2 CLOTHS) TOP SCH ×2 (04:00→19:37)
[2017-08-12 04:51] LABS: AUTOMATED NEUTROPHIL # 12.4 TH/MM3 (1.8-7.7); BASOPHIL # 0.1 TH/MM3 (0-0.2); BASOPHIL % 0.4 % (0.0-2.0); HEMATOCRIT 24.4 % (39.0-51.0); LYMPH % 6.6 % (9.0-44.0); LYMPHOCYTE # 1.1 TH/MM3 (1.0-4.8); MEAN CELL VOLUME 88.6 FL (80.0-100.0); MEAN CORPUSCULAR HGB CONC 32.8 % (32.0-36.0); MEAN PLATELET VOLUME 8.6 FL (7.0-11.0); MONO % 11.2 % (0.0-8.0); MONOCYTE # 1.8 TH/MM3 (0-0.9); NEUT % 75.8 % (16.0-70.0); PLATELET COUNT 486 TH/MM3 (150-450); RED BLOOD COUNT 2.76 MIL/MM3 (4.50-5.90); RED CELL DISTRIBUTION WIDTH 15.7 % (11.6-17.2); WHITE BLOOD COUNT 16.3 TH/MM3 (4.0-11.0)
[2017-08-12] MEDS: DEXMEDETOMIDINE INJ 200 MCG in SODIUM CHLORIDE 0.9% INJ 50 ML IV PRN ×3 (05:11→16:48)
[2017-08-12] MEDS: FREE WATER G-TUBE SCH ×4 (05:12→23:49)
[2017-08-12 05:20] LABS: BICARBONATE 30.1 MEQ/L (21.0-32.0); CALCIUM 8.9 MG/DL (8.5-10.1); CREATININE 1.64 MG/DL (0.60-1.30)
[2017-08-12] MEDS: CHLORHEXIDINE 0.12% (ORAL KIT) 15 ML CUP MT SCH ×2 (08:00→20:00)
[2017-08-12] MEDS: LACTATED RINGER'S 1000 ML INJ 1,000 ML IV SCH (08:00)
[2017-08-12] MEDS: SILVER SULFADIAZINE 1% CR 50 GM JAR TOP SCH (09:00)
[2017-08-12] MEDS: SODIUM CHLORIDE FLUSH BID IV FLUSH SCH ×2 (09:00→20:21)
[2017-08-12] MEDS: SODIUM HYPOCHLORITE 0.125% 500 ML BTL TOPICAL SCH (09:00)
[2017-08-12] MEDS: FAMOTIDINE 20 MG TAB OG-TUBE SCH ×2 (09:57→20:21)
[2017-08-12] MEDS: QUEtiapine FUMARATE 25 MG TAB PO SCH ×3 (09:57→17:56)
[2017-08-12] MEDS: DOCUSATE SODIUM 50 MG/SENNA 8.6 MG TAB PO SCH ×2 (09:57→20:21)
[2017-08-12] MEDS: LACTULOSE SYRUP 20 GM/30 ML CUP PO SCH (09:57)
[2017-08-12] MEDS: ASPIRIN 325 MG TAB PO SCH (11:32)
[2017-08-12] MEDS: ENOXAPARIN SODIUM 40 MG/0.4 ML SYRINGE SQ SCH (11:33)
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
[2017-08-12] MEDS: NEOMYCIN/POLYMYXIN/BACITRACIN OINT 15 GM TUBE TOPICAL SCH (12:08)
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
[2017-08-13] VITALS (17 sets, daily range): BP systolic 114–203; BP diastolic 58–93; PULSE 80–144; RESP 16–35; TEMP 98.7–101.6; O2SAT 98–100
[2017-08-13] MEDS: oxyCODONE HCL ORAL CONC 5 MG/0.25 ML SYRINGE PO SCH ×6 (01:45→22:00)
[2017-08-13] MEDS: DEXMEDETOMIDINE INJ 200 MCG in SODIUM CHLORIDE 0.9% INJ 50 ML IV PRN ×4 (03:29→23:57)
[2017-08-13] MEDS: LACTATED RINGER'S 1000 ML INJ 1,000 ML IV SCH (04:00)
[2017-08-13 04:38] LABS: AUTOMATED NEUTROPHIL # 13.1 TH/MM3 (1.8-7.7); BASOPHIL # 0.1 TH/MM3 (0-0.2); BASOPHIL % 0.3 % (0.0-2.0); EOSINOPHIL # 1.5 TH/MM3 (0-0.4); EOSINOPHIL % 8.7 % (0.0-4.0); HEMATOCRIT 22.3 % (39.0-51.0); HEMOGLOBIN 7.3 GM/DL (13.0-17.0); LYMPH % 4.4 % (9.0-44.0); LYMPHOCYTE # 0.8 TH/MM3 (1.0-4.8); MEAN CELL VOLUME 88.5 FL (80.0-100.0); MEAN CORPUSCULAR HEMOGLOBIN 28.9 PG (27.0-34.0); MEAN CORPUSCULAR HGB CONC 32.6 % (32.0-36.0); MEAN PLATELET VOLUME 8.4 FL (7.0-11.0); MONO % 10.4 % (0.0-8.0); MONOCYTE # 1.8 TH/MM3 (0-0.9); NEUT % 76.2 % (16.0-70.0); PLATELET COUNT 514 TH/MM3 (150-450); RED BLOOD COUNT 2.52 MIL/MM3 (4.50-5.90); WHITE BLOOD COUNT 17.3 TH/MM3 (4.0-11.0)
[2017-08-13 05:02] LABS: BICARBONATE 30.4 MEQ/L (21.0-32.0); CALCIUM 8.6 MG/DL (8.5-10.1); CREATININE 1.53 MG/DL (0.60-1.30)
[2017-08-13] MEDS: FREE WATER G-TUBE SCH ×3 (05:51→23:58)
[2017-08-13] MEDS: CHLORHEXIDINE 0.12% (ORAL KIT) 15 ML CUP MT SCH ×2 (08:00→22:00)
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
[2017-08-13] MEDS: SODIUM CHLORIDE FLUSH BID IV FLUSH SCH ×2 (08:55→22:00)
[2017-08-13] MEDS: ASPIRIN 325 MG TAB PO SCH (08:56)
[2017-08-13] MEDS: DOCUSATE SODIUM 50 MG/SENNA 8.6 MG TAB PO SCH ×2 (08:56→21:00)
[2017-08-13] MEDS: FAMOTIDINE 20 MG TAB OG-TUBE SCH ×2 (08:56→22:00)
[2017-08-13] MEDS: SODIUM HYPOCHLORITE 0.125% 500 ML BTL TOPICAL SCH (08:57)
[2017-08-13] MEDS: SILVER SULFADIAZINE 1% CR 50 GM JAR TOP SCH (08:57)
[2017-08-13] MEDS: LACTULOSE SYRUP 20 GM/30 ML CUP PO SCH (08:57)
[2017-08-13] MEDS: QUEtiapine FUMARATE 25 MG TAB PO SCH ×3 (08:57→18:59)
[2017-08-13] MEDS: NEOMYCIN/POLYMYXIN/BACITRACIN OINT 15 GM TUBE TOPICAL SCH (08:57)
[2017-08-13] MEDS: ENOXAPARIN SODIUM 40 MG/0.4 ML SYRINGE SQ SCH (11:27)
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
[2017-08-14] VITALS (39 sets, daily range): BP systolic 92–147; BP diastolic 51–67; PULSE 66–113; RESP 16–21; TEMP 97.8–99.5; O2SAT 94–100
[2017-08-14] MEDS: oxyCODONE HCL ORAL CONC 5 MG/0.25 ML SYRINGE PO SCH ×6 (03:33→22:00)
[2017-08-14] MEDS: DEXMEDETOMIDINE INJ 200 MCG in SODIUM CHLORIDE 0.9% INJ 50 ML IV PRN ×6 (03:34→23:09)
[2017-08-14] MEDS: CHLORHEXIDINE GLUCONATE 2 % 1 PACK (2 CLOTHS) TOP SCH (04:00)
[2017-08-14] MEDS: LACTATED RINGER'S 1000 ML INJ 1,000 ML IV SCH (05:08)
[2017-08-14] MEDS: FREE WATER G-TUBE SCH ×3 (05:09→18:00)
[2017-08-14 06:01] LABS: AUTOMATED NEUTROPHIL # 11.1 TH/MM3 (1.8-7.7); BASOPHIL % 0.3 % (0.0-2.0); EOSINOPHIL # 1.3 TH/MM3 (0-0.4); EOSINOPHIL % 8.4 % (0.0-4.0); MEAN CELL VOLUME 89.1 FL (80.0-100.0); MEAN CORPUSCULAR HEMOGLOBIN 29.8 PG (27.0-34.0); MEAN CORPUSCULAR HGB CONC 33.4 % (32.0-36.0); MEAN PLATELET VOLUME 8.5 FL (7.0-11.0); MONO % 9.9 % (0.0-8.0); MONOCYTE # 1.5 TH/MM3 (0-0.9); NEUT % 74.4 % (16.0-70.0); PLATELET COUNT 543 TH/MM3 (150-450); RED BLOOD COUNT 2.16 MIL/MM3 (4.50-5.90); RED CELL DISTRIBUTION WIDTH 15.5 % (11.6-17.2); WHITE BLOOD COUNT 14.9 TH/MM3 (4.0-11.0)
[2017-08-14 06:07] LABS: HEMOGLOBIN 6.4 GM/DL (13.0-17.0)
[2017-08-14 06:08] LABS: HEMATOCRIT 19.3 % (39.0-51.0)
[2017-08-14 06:23] LABS: BICARBONATE 30.9 MEQ/L (21.0-32.0); CALCIUM 8.8 MG/DL (8.5-10.1); CREATININE 1.44 MG/DL (0.60-1.30)
[2017-08-14] MEDS: SILVER SULFADIAZINE 1% CR 50 GM JAR TOP SCH (08:16)
[2017-08-14] MEDS: NEOMYCIN/POLYMYXIN/BACITRACIN OINT 15 GM TUBE TOPICAL SCH (08:16)
[2017-08-14] MEDS: SODIUM HYPOCHLORITE 0.125% 500 ML BTL TOPICAL SCH (08:16)
[2017-08-14] MEDS: ASPIRIN 325 MG TAB PO SCH (08:35)
[2017-08-14] MEDS: QUEtiapine FUMARATE 25 MG TAB PO SCH ×3 (08:35→18:04)
[2017-08-14] MEDS: DOCUSATE SODIUM 50 MG/SENNA 8.6 MG TAB PO SCH ×2 (08:35→20:10)
[2017-08-14] MEDS: LACTULOSE SYRUP 20 GM/30 ML CUP PO SCH (08:35)
[2017-08-14] MEDS: FAMOTIDINE 20 MG TAB OG-TUBE SCH ×2 (08:35→20:10)
[2017-08-14] MEDS: SODIUM CHLORIDE FLUSH BID IV FLUSH SCH ×2 (08:36→20:11)
[2017-08-14] MEDS: CHLORHEXIDINE 0.12% (ORAL KIT) 15 ML CUP MT SCH ×2 (08:37→20:00)
[2017-08-14] MEDS: ENOXAPARIN SODIUM 40 MG/0.4 ML SYRINGE SQ SCH (12:12)
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
[2017-08-15] VITALS (20 sets, daily range): BP systolic 115–159; BP diastolic 59–74; PULSE 77–124; RESP 16–22; TEMP 98.9–99.8; O2SAT 96–100
[2017-08-15] MEDS: LACTATED RINGER'S 1000 ML INJ 1,000 ML IV SCH ×2 (00:19→18:01)
[2017-08-15] MEDS: oxyCODONE HCL ORAL CONC 5 MG/0.25 ML SYRINGE PO SCH ×6 (02:43→22:56)
[2017-08-15] MEDS: DEXMEDETOMIDINE INJ 200 MCG in SODIUM CHLORIDE 0.9% INJ 50 ML IV PRN ×2 (02:56→20:30)
[2017-08-15] MEDS: CHLORHEXIDINE GLUCONATE 2 % 1 PACK (2 CLOTHS) TOP SCH (04:00)
--- NOTE | 2017-08-15 04:21 | RADRPT ---
EXAM DATE/TIME: 08/15/2017 02:49 [place] COMPARISON: CHEST SINGLE AP, August 11, 2017, 4:28. INDICATIONS : Shortness of breath. MEDICAL HISTORY : Unobtainable. SURGICAL HISTORY : Unobtainable. ENCOUNTER: Subsequent ACUITY: 2 weeks PAIN SCORE: Non-responsive. LOCATION: Bilateral chest FINDINGS: 2 endotracheal tube 4 cm proximal to navya. Nasogastric tube courses off the inferior margin of the film. Left basilar consolidation has shown no significant change. New right basilar consolidation. No effusions. Heart is normal in size. CONCLUSION: 1. New small right basilar consolidation. Left basilar consolidation is unchanged. Jai Ahumada Jr., MD on August 15, 2017 at 4:19 Board Certified Radiologist. This report was verified electronically.
[2017-08-15] MEDS: FREE WATER G-TUBE SCH ×4 (05:34→18:01)
[2017-08-15 06:14] LABS: AUTOMATED NEUTROPHIL # 14.2 TH/MM3 (1.8-7.7); BASOPHIL # 0.1 TH/MM3 (0-0.2); BASOPHIL % 0.6 % (0.0-2.0); EOSINOPHIL # 1.7 TH/MM3 (0-0.4); EOSINOPHIL % 8.9 % (0.0-4.0); HEMATOCRIT 30.9 % (39.0-51.0); HEMOGLOBIN 10.3 GM/DL (13.0-17.0); LYMPH % 7.8 % (9.0-44.0); LYMPHOCYTE # 1.5 TH/MM3 (1.0-4.8); MEAN CORPUSCULAR HEMOGLOBIN 29.9 PG (27.0-34.0); MEAN CORPUSCULAR HGB CONC 33.2 % (32.0-36.0); MONO % 8.9 % (0.0-8.0); MONOCYTE # 1.7 TH/MM3 (0-0.9); NEUT % 73.8 % (16.0-70.0); PLATELET COUNT 644 TH/MM3 (150-450); RED BLOOD COUNT 3.43 MIL/MM3 (4.50-5.90); RED CELL DISTRIBUTION WIDTH 15.3 % (11.6-17.2); WHITE BLOOD COUNT 19.2 TH/MM3 (4.0-11.0)
[2017-08-15 06:29] LABS: BICARBONATE 30.4 MEQ/L (21.0-32.0); CALCIUM 9.1 MG/DL (8.5-10.1); CREATININE 1.41 MG/DL (0.60-1.30)
[2017-08-15] MEDS: LACTULOSE SYRUP 20 GM/30 ML CUP PO SCH (07:36)
[2017-08-15] MEDS: DOCUSATE SODIUM 50 MG/SENNA 8.6 MG TAB PO SCH ×2 (07:36→20:28)
[2017-08-15 07:49] LABS: BANDS 17 % (0-6); BASOPHILS 1 % (0-2); CORRECTED NUCLEATED RBC 1 /100 WBC (0-0); LYMPHOCYTES 8 % (9-44); METAMYELOCYTES 1 % (0-1); MONOCYTES 11 % (0-8); MYELOCYTES 1 % (0-0); NEUTROPHIL # MANUAL DIFF 13.8 TH/MM3 (1.8-7.7); NUCLEATED RED BLOOD CELL 1 (0-0); POLYS (SEG NEUTROPHILS) 53 % (16-70)
[2017-08-15] MEDS: CHLORHEXIDINE 0.12% (ORAL KIT) 15 ML CUP MT SCH ×2 (07:52→20:31)
[2017-08-15] MEDS: SODIUM CHLORIDE 0.9% FLUSH 10 ML FLUSH IV FLUSH PRN (07:52)
[2017-08-15] MEDS: SODIUM CHLORIDE FLUSH BID IV FLUSH SCH ×2 (07:52→20:31)
[2017-08-15] MEDS: ASPIRIN 325 MG TAB PO SCH (07:53)
[2017-08-15] MEDS: QUEtiapine FUMARATE 25 MG TAB PO SCH ×3 (07:53→18:01)
[2017-08-15] MEDS: FAMOTIDINE 20 MG TAB OG-TUBE SCH ×2 (07:53→20:28)
[2017-08-15] MEDS: NEOMYCIN/POLYMYXIN/BACITRACIN OINT 15 GM TUBE TOPICAL SCH (07:53)
[2017-08-15] MEDS: SILVER SULFADIAZINE 1% CR 50 GM JAR TOP SCH (07:54)
[2017-08-15] MEDS: SODIUM HYPOCHLORITE 0.125% 500 ML BTL TOPICAL SCH (07:54)
[2017-08-15] MEDS: ENOXAPARIN SODIUM 40 MG/0.4 ML SYRINGE SQ SCH (10:18)
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
[2017-08-16] VITALS (18 sets, daily range): BP systolic 97–159; BP diastolic 52–72; PULSE 69–112; RESP 16–29; TEMP 97.8–99.1; O2SAT 98–100
[2017-08-16] MEDS: oxyCODONE HCL ORAL CONC 5 MG/0.25 ML SYRINGE PO SCH ×6 (02:00→22:24)
[2017-08-16] MEDS: CHLORHEXIDINE GLUCONATE 2 % 1 PACK (2 CLOTHS) TOP SCH (04:00)
[2017-08-16 04:24] LABS: AUTOMATED NEUTROPHIL # 11.2 TH/MM3 (1.8-7.7); BASOPHIL # 0.1 TH/MM3 (0-0.2); BASOPHIL % 0.5 % (0.0-2.0); EOSINOPHIL # 1.4 TH/MM3 (0-0.4); EOSINOPHIL % 9.4 % (0.0-4.0); HEMATOCRIT 29.1 % (39.0-51.0); HEMOGLOBIN 9.7 GM/DL (13.0-17.0); LYMPH % 5.5 % (9.0-44.0); LYMPHOCYTE # 0.8 TH/MM3 (1.0-4.8); MEAN CORPUSCULAR HEMOGLOBIN 29.7 PG (27.0-34.0); MEAN CORPUSCULAR HGB CONC 33.4 % (32.0-36.0); MEAN PLATELET VOLUME 8.5 FL (7.0-11.0); MONO % 8.1 % (0.0-8.0); MONOCYTE # 1.2 TH/MM3 (0-0.9); NEUT % 76.5 % (16.0-70.0); PLATELET COUNT 762 TH/MM3 (150-450); RED BLOOD COUNT 3.27 MIL/MM3 (4.50-5.90); RED CELL DISTRIBUTION WIDTH 15.5 % (11.6-17.2); WHITE BLOOD COUNT 14.6 TH/MM3 (4.0-11.0)
[2017-08-16 04:43] LABS: BICARBONATE 27.6 MEQ/L (21.0-32.0); CREATININE 1.27 MG/DL (0.60-1.30)
[2017-08-16] MEDS: DEXMEDETOMIDINE INJ 200 MCG in SODIUM CHLORIDE 0.9% INJ 50 ML IV PRN ×2 (05:18→10:27)
[2017-08-16] MEDS: FREE WATER G-TUBE SCH ×5 (05:20→19:55)
[2017-08-16 06:14] LABS: BANDS 8 % (0-6); LYMPHOCYTES 5 % (9-44); MONOCYTES 4 % (0-8); MYELOCYTES 2 % (0-0); NEUTROPHIL # MANUAL DIFF 12.1 TH/MM3 (1.8-7.7); POLYS (SEG NEUTROPHILS) 72 % (16-70); PROMYELOCYTES 1 % (0-0)
[2017-08-16 06:16] LABS: ACANTHOCYTES OCC (NORMAL)
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
[2017-08-16] MEDS: CHLORHEXIDINE 0.12% (ORAL KIT) 15 ML CUP MT SCH ×2 (09:16→19:55)
[2017-08-16] MEDS: SODIUM CHLORIDE FLUSH BID IV FLUSH SCH ×2 (09:19→19:55)
[2017-08-16] MEDS: DOCUSATE SODIUM 50 MG/SENNA 8.6 MG TAB PO SCH ×2 (09:19→19:54)
[2017-08-16] MEDS: ASPIRIN 325 MG TAB PO SCH (09:20)
[2017-08-16] MEDS: LACTULOSE SYRUP 20 GM/30 ML CUP PO SCH (09:20)
[2017-08-16] MEDS: FAMOTIDINE 20 MG TAB OG-TUBE SCH ×2 (09:20→19:54)
[2017-08-16] MEDS: NEOMYCIN/POLYMYXIN/BACITRACIN OINT 15 GM TUBE TOPICAL SCH (09:21)
[2017-08-16] MEDS: SODIUM HYPOCHLORITE 0.125% 500 ML BTL TOPICAL SCH (09:26)
[2017-08-16] MEDS: SILVER SULFADIAZINE 1% CR 50 GM JAR TOP SCH (09:27)
[2017-08-16] MEDS: QUEtiapine FUMARATE 25 MG TAB PO SCH ×3 (09:29→20:35)
[2017-08-16] MEDS: ENOXAPARIN SODIUM 40 MG/0.4 ML SYRINGE SQ SCH (11:54)
[2017-08-16] MEDS: RESP: ALBUTEROL 2.5 MG/IPRATROPIUM 0.5 MG NEB (PRN) NEB (14:15)
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
[2017-08-16] MEDS: METOPROLOL TARTRATE 5 MG/5 ML VIAL IV PUSH SCH (19:54)
[2017-08-16] MEDS: HALOPERIDOL LACTATE 5 MG/ML AMP IV PRN (22:24)
[2017-08-17] VITALS (14 sets, daily range): BP systolic 129–194; BP diastolic 74–98; PULSE 70–122; RESP 16–26; TEMP 97.9–98.9; O2SAT 92–100
[2017-08-17] MEDS: METOPROLOL TARTRATE 5 MG/5 ML VIAL IV PUSH SCH ×4 (01:19→19:47)
[2017-08-17] MEDS: oxyCODONE HCL ORAL CONC 5 MG/0.25 ML SYRINGE PO SCH ×2 (01:19→05:09)
[2017-08-17] MEDS: HALOPERIDOL LACTATE 5 MG/ML AMP IV PRN ×2 (02:29→05:40)
[2017-08-17] MEDS: CHLORHEXIDINE GLUCONATE 2 % 1 PACK (2 CLOTHS) TOP SCH (04:00)
[2017-08-17] MEDS: FREE WATER G-TUBE SCH (05:17)
[2017-08-17] MEDS ORDERED: MORPHINE SULFATE 4 MG/ML INJ IV PUSH PRN (06:30)
[2017-08-17] MEDS: FAMOTIDINE 20 MG/2 ML VIAL IV PUSH SCH ×2 (08:27→17:49)
[2017-08-17] MEDS: SODIUM CHLORIDE FLUSH BID IV FLUSH SCH ×2 (08:28→21:19)
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
[2017-08-17] MEDS: QUEtiapine FUMARATE 25 MG TAB PO SCH ×3 (08:38→17:49)
[2017-08-17] MEDS: ASPIRIN 325 MG TAB PO SCH (08:39)
[2017-08-17] MEDS: LACTATED RINGER'S 1000 ML INJ 1,000 ML IV SCH ×3 (08:56→18:29)
[2017-08-17] MEDS: DOCUSATE SODIUM 50 MG/SENNA 8.6 MG TAB PO SCH ×2 (08:56→21:18)
[2017-08-17] MEDS: LACTULOSE SYRUP 20 GM/30 ML CUP PO SCH (08:56)
[2017-08-17 09:00] LABS: AUTOMATED NEUTROPHIL # 18.8 TH/MM3 (1.8-7.7); BASOPHIL # 0.1 TH/MM3 (0-0.2); BASOPHIL % 0.4 % (0.0-2.0); EOSINOPHIL # 0.3 TH/MM3 (0-0.4); EOSINOPHIL % 1.5 % (0.0-4.0); HEMATOCRIT 33.4 % (39.0-51.0); LYMPH % 2.9 % (9.0-44.0); LYMPHOCYTE # 0.6 TH/MM3 (1.0-4.8); MEAN CORPUSCULAR HEMOGLOBIN 29.4 PG (27.0-34.0); MEAN CORPUSCULAR HGB CONC 33.1 % (32.0-36.0); MEAN PLATELET VOLUME 7.9 FL (7.0-11.0); MONO % 6.8 % (0.0-8.0); MONOCYTE # 1.4 TH/MM3 (0-0.9); NEUT % 88.4 % (16.0-70.0); PLATELET COUNT 1023 TH/MM3 (150-450); RED BLOOD COUNT 3.75 MIL/MM3 (4.50-5.90); RED CELL DISTRIBUTION WIDTH 15.3 % (11.6-17.2); WHITE BLOOD COUNT 21.2 TH/MM3 (4.0-11.0)
[2017-08-17] MEDS ORDERED: VALPROATE INJ 250 MG in SODIUM CHLORIDE 0.9% INJ 100 ML IV SCH (09:00)
[2017-08-17] MEDS: NEOMYCIN/POLYMYXIN/BACITRACIN OINT 15 GM TUBE TOPICAL SCH (09:00)
[2017-08-17 09:20] LABS: CALCIUM 9.4 MG/DL (8.5-10.1); CREATININE 1.32 MG/DL (0.60-1.30)
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
[2017-08-17] MEDS: ENOXAPARIN SODIUM 40 MG/0.4 ML SYRINGE SQ SCH (12:17)
[2017-08-17] MEDS: SODIUM HYPOCHLORITE 0.125% 500 ML BTL TOPICAL SCH (14:06)
[2017-08-17] MEDS: SILVER SULFADIAZINE 1% CR 50 GM JAR TOP SCH (14:06)
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
[2017-08-17] MEDS: oxyCODONE/ACETAMINOPHEN 5 MG/325 MG TAB PO PRN ×2 (16:47→22:18)
[2017-08-17] MEDS: SODIUM CHLORIDE 0.9% FLUSH 10 ML FLUSH IV FLUSH PRN (19:47)
--- NOTE | 2017-08-17 21:10 | RADRPT ---
EXAM DATE/TIME: 08/17/2017 20:42 [facility] COMPARISON: No previous studies available for comparison. INDICATIONS : Left shoulder crepitus. MEDICAL HISTORY : None. SURGICAL HISTORY : None. ENCOUNTER: Initial ACUITY: 1 day PAIN SCORE: Non-responsive. LOCATION: Left shoulder. FINDINGS: No fracture or subluxation seen of the left shoulder. There is considerable subacromial spurring. 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 Moderate osteoarthritis seen of the acromioclavicular joint. CONCLUSION: Intact left shoulder. Subacromial spurring, degenerative changes of the acromioclavicular joint and p ossible incompletely fused os acromiale. Ángel Bains MD on August 17, 2017 at 21:06 Board Certified Radiologist. This report was verified electronically.
[2017-08-17] MEDS: VALPROIC ACID 250 MG CAP PO SCH (21:19)
[2017-08-18] VITALS (14 sets, daily range): BP systolic 145–177; BP diastolic 68–86; PULSE 72–107; RESP 23–30; TEMP 98–99.8; O2SAT 95–99
[2017-08-18] MEDS: METOPROLOL TARTRATE 5 MG/5 ML VIAL IV PUSH SCH ×4 (02:39→19:23)
[2017-08-18] MEDS: CHLORHEXIDINE GLUCONATE 2 % 1 PACK (2 CLOTHS) TOP SCH (04:00)
[2017-08-18] MEDS: oxyCODONE/ACETAMINOPHEN 5 MG/325 MG TAB PO PRN (04:36)
[2017-08-18 04:48] LABS: AUTOMATED NEUTROPHIL # 14.8 TH/MM3 (1.8-7.7); BASOPHIL # 0.2 TH/MM3 (0-0.2); HEMATOCRIT 33.5 % (39.0-51.0); HEMOGLOBIN 10.9 GM/DL (13.0-17.0); LYMPH % 6.9 % (9.0-44.0); LYMPHOCYTE # 1.3 TH/MM3 (1.0-4.8); MEAN CORPUSCULAR HEMOGLOBIN 29.6 PG (27.0-34.0); MEAN CORPUSCULAR HGB CONC 32.5 % (32.0-36.0); MEAN PLATELET VOLUME 8.4 FL (7.0-11.0); MONO % 10.4 % (0.0-8.0); NEUT % 76.7 % (16.0-70.0); PLATELET COUNT 1057 TH/MM3 (150-450); RED BLOOD COUNT 3.68 MIL/MM3 (4.50-5.90); RED CELL DISTRIBUTION WIDTH 15.6 % (11.6-17.2); WHITE BLOOD COUNT 19.2 TH/MM3 (4.0-11.0)
[2017-08-18 05:13] LABS: BICARBONATE 28.7 MEQ/L (21.0-32.0); CALCIUM 9.1 MG/DL (8.5-10.1); CREATININE 1.65 MG/DL (0.60-1.30)
[2017-08-18] MEDS: FAMOTIDINE 20 MG/2 ML VIAL IV PUSH SCH ×2 (05:53→17:30)
[2017-08-18] MEDS: SODIUM CHLORIDE 0.9% FLUSH 10 ML FLUSH IV FLUSH PRN ×2 (05:54→19:23)
[2017-08-18] MEDS: SODIUM CHLORIDE FLUSH BID IV FLUSH SCH ×2 (08:07→21:11)
[2017-08-18] MEDS: ASPIRIN 325 MG TAB PO SCH (08:08)
[2017-08-18] MEDS: VALPROIC ACID 250 MG CAP PO SCH ×2 (08:08→21:11)
[2017-08-18] MEDS: DOCUSATE SODIUM 50 MG/SENNA 8.6 MG TAB PO SCH ×2 (08:08→21:10)
[2017-08-18] MEDS: SODIUM HYPOCHLORITE 0.125% 500 ML BTL TOPICAL SCH (08:09)
[2017-08-18] MEDS: SILVER SULFADIAZINE 1% CR 50 GM JAR TOP SCH (08:09)
[2017-08-18] MEDS: NEOMYCIN/POLYMYXIN/BACITRACIN OINT 15 GM TUBE TOPICAL SCH (08:09)
[2017-08-18] MEDS: LACTATED RINGER'S 1000 ML INJ 1,000 ML IV SCH ×2 (08:40→15:22)
[2017-08-18] MEDS: QUEtiapine FUMARATE 25 MG TAB PO SCH ×3 (09:00→19:22)
[2017-08-18] MEDS ORDERED: SODIUM CHLOR 0.9% 1000 ML INJ 1,000 ML IV ONE (10:00)
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
[2017-08-18] MEDS: ENOXAPARIN SODIUM 40 MG/0.4 ML SYRINGE SQ SCH (10:58)
[2017-08-18] MEDS: cloNIDine HCL 0.1 MG/24 HR PATCH T-DERMAL SCH (10:59)
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
[2017-08-19] VITALS (11 sets, daily range): BP systolic 137–181; BP diastolic 63–86; PULSE 66–114; RESP 20–32; TEMP 98–99.3; O2SAT 94–100
[2017-08-19] MEDS: METOPROLOL TARTRATE 5 MG/5 ML VIAL IV PUSH SCH ×2 (03:06→08:53)
[2017-08-19] MEDS: CHLORHEXIDINE GLUCONATE 2 % 1 PACK (2 CLOTHS) TOP SCH (03:47)
[2017-08-19 03:49] LABS: AUTOMATED NEUTROPHIL # 13.4 TH/MM3 (1.8-7.7); BASOPHIL # 0.1 TH/MM3 (0-0.2); BASOPHIL % 0.3 % (0.0-2.0); EOSINOPHIL # 0.9 TH/MM3 (0-0.4); EOSINOPHIL % 5.3 % (0.0-4.0); HEMATOCRIT 32.7 % (39.0-51.0); HEMOGLOBIN 10.8 GM/DL (13.0-17.0); LYMPH % 5.1 % (9.0-44.0); LYMPHOCYTE # 0.9 TH/MM3 (1.0-4.8); MEAN CELL VOLUME 89.7 FL (80.0-100.0); MEAN CORPUSCULAR HEMOGLOBIN 29.7 PG (27.0-34.0); MEAN CORPUSCULAR HGB CONC 33.1 % (32.0-36.0); MEAN PLATELET VOLUME 7.5 FL (7.0-11.0); MONO % 8.8 % (0.0-8.0); MONOCYTE # 1.5 TH/MM3 (0-0.9); NEUT % 80.5 % (16.0-70.0); PLATELET COUNT 1045 TH/MM3 (150-450); RED BLOOD COUNT 3.65 MIL/MM3 (4.50-5.90); RED CELL DISTRIBUTION WIDTH 15.5 % (11.6-17.2); WHITE BLOOD COUNT 16.6 TH/MM3 (4.0-11.0)
[2017-08-19 04:01] LABS: ALBUMIN 2.3 GM/DL (3.4-5.0); ALT (GPT) 57 U/L (12-78); AST (GOT) 35 U/L (15-37); BLOOD UREA NITROGEN 19 MG/DL (7-18); CALCIUM 9.3 MG/DL (8.5-10.1); CHLORIDE 106 MEQ/L (98-107); CREATININE 1.11 MG/DL (0.60-1.30); GLOMERULAR FILTRATION RATE 66 ML/MIN (>89); GLUCOSE,RANDOM 101 MG/DL (74-106); SODIUM (NA) 144 MEQ/L (136-145)
[2017-08-19 04:03] LABS: ALKALINE PHOSPHATASE 217 U/L (45-117); TOTAL BILIRUBIN ADULT 0.6 MG/DL (0.2-1.0); TOTAL PROTEIN 7.6 GM/DL (6.4-8.2)
[2017-08-19] MEDS: LACTATED RINGER'S 1000 ML INJ 1,000 ML IV SCH ×2 (05:33→17:25)
[2017-08-19] MEDS: FAMOTIDINE 20 MG/2 ML VIAL IV PUSH SCH ×2 (05:35→16:21)
[2017-08-19] MEDS: SODIUM CHLORIDE 0.9% FLUSH 10 ML FLUSH IV FLUSH PRN (05:36)
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
[2017-08-19] MEDS: ASPIRIN 325 MG TAB PO SCH (08:52)
[2017-08-19] MEDS: QUEtiapine FUMARATE 25 MG TAB PO SCH ×2 (08:52→12:36)
[2017-08-19] MEDS: SILVER SULFADIAZINE 1% CR 50 GM JAR TOP SCH (08:53)
[2017-08-19] MEDS: SODIUM CHLORIDE FLUSH BID IV FLUSH SCH ×2 (08:53→21:55)
[2017-08-19] MEDS: SODIUM HYPOCHLORITE 0.125% 500 ML BTL TOPICAL SCH (08:53)
[2017-08-19] MEDS: NEOMYCIN/POLYMYXIN/BACITRACIN OINT 15 GM TUBE TOPICAL SCH (08:53)
[2017-08-19] MEDS: DOCUSATE SODIUM 50 MG/SENNA 8.6 MG TAB PO SCH ×2 (08:53→21:55)
[2017-08-19] MEDS: VALPROIC ACID 250 MG CAP PO SCH ×2 (08:53→21:55)
[2017-08-19] MEDS: amLODIPine BESYLATE 5 MG TAB PO SCH (10:15)
[2017-08-19] MEDS: PROPRANOLOL HCL 10 MG TAB PO SCH ×3 (10:15→21:55)
[2017-08-19] MEDS: ENOXAPARIN SODIUM 40 MG/0.4 ML SYRINGE SQ SCH (10:19)
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
[2017-08-19] MEDS: oxyCODONE/ACETAMINOPHEN 5 MG/325 MG TAB PO PRN (16:21)
[2017-08-19] MEDS ORDERED: QUEtiapine FUMARATE 100 MG TAB PO SCH (21:00)
[2017-08-20] VITALS (7 sets, daily range): BP systolic 148–182; BP diastolic 70–83; PULSE 67–90; RESP 16–25; TEMP 97.9–99.3; O2SAT 95–99
[2017-08-20] MEDS: CHLORHEXIDINE GLUCONATE 2 % 1 PACK (2 CLOTHS) TOP SCH (04:00)
[2017-08-20 05:30] LABS: AUTOMATED NEUTROPHIL # 10.6 TH/MM3 (1.8-7.7); BASOPHIL # 0.1 TH/MM3 (0-0.2); BASOPHIL % 0.7 % (0.0-2.0); EOSINOPHIL # 1.2 TH/MM3 (0-0.4); EOSINOPHIL % 8.4 % (0.0-4.0); HEMATOCRIT 35.4 % (39.0-51.0); HEMOGLOBIN 11.7 GM/DL (13.0-17.0); LYMPH % 5.9 % (9.0-44.0); LYMPHOCYTE # 0.8 TH/MM3 (1.0-4.8); MEAN CELL VOLUME 89.7 FL (80.0-100.0); MEAN CORPUSCULAR HEMOGLOBIN 29.7 PG (27.0-34.0); MEAN CORPUSCULAR HGB CONC 33.1 % (32.0-36.0); MONO % 11.5 % (0.0-8.0); MONOCYTE # 1.7 TH/MM3 (0-0.9); NEUT % 73.5 % (16.0-70.0); PLATELET COUNT 1142 TH/MM3 (150-450); RED BLOOD COUNT 3.95 MIL/MM3 (4.50-5.90); RED CELL DISTRIBUTION WIDTH 15.8 % (11.6-17.2); WHITE BLOOD COUNT 14.4 TH/MM3 (4.0-11.0)
[2017-08-20 05:46] LABS: ALBUMIN 2.2 GM/DL (3.4-5.0); ALT (GPT) 49 U/L (12-78); AST (GOT) 37 U/L (15-37); BICARBONATE 28.2 MEQ/L (21.0-32.0); BLOOD UREA NITROGEN 19 MG/DL (7-18); CALCIUM 9.4 MG/DL (8.5-10.1); CHLORIDE 103 MEQ/L (98-107); CREATININE 1.05 MG/DL (0.60-1.30); GLOMERULAR FILTRATION RATE 70 ML/MIN (>89); GLUCOSE,RANDOM 81 MG/DL (74-106); SODIUM (NA) 144 MEQ/L (136-145)
[2017-08-20 05:48] LABS: ALKALINE PHOSPHATASE 208 U/L (45-117); TOTAL BILIRUBIN ADULT 0.5 MG/DL (0.2-1.0); TOTAL PROTEIN 7.6 GM/DL (6.4-8.2)
[2017-08-20] MEDS: PROPRANOLOL HCL 10 MG TAB PO SCH ×3 (06:45→21:12)
[2017-08-20] MEDS: FAMOTIDINE 20 MG/2 ML VIAL IV PUSH SCH ×2 (06:45→19:21)
[2017-08-20] MEDS: LACTATED RINGER'S 1000 ML INJ 1,000 ML IV SCH ×2 (07:30→14:00)
[2017-08-20] MEDS ORDERED: QUEtiapine FUMARATE 25 MG TAB PO SCH ×3 (08:00→21:00)
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
[2017-08-20] MEDS: SILVER SULFADIAZINE 1% CR 50 GM JAR TOP SCH (09:00)
[2017-08-20] MEDS: NEOMYCIN/POLYMYXIN/BACITRACIN OINT 15 GM TUBE TOPICAL SCH (09:00)
[2017-08-20] MEDS: SODIUM CHLORIDE FLUSH BID IV FLUSH SCH ×2 (09:00→21:12)
[2017-08-20] MEDS: SODIUM HYPOCHLORITE 0.125% 500 ML BTL TOPICAL SCH (09:00)
[2017-08-20] MEDS: LACTULOSE SYRUP 20 GM/30 ML CUP PO SCH (09:58)
[2017-08-20] MEDS: amLODIPine BESYLATE 5 MG TAB PO SCH (09:58)
[2017-08-20] MEDS: VALPROIC ACID 250 MG CAP PO SCH ×2 (09:58→21:00)
[2017-08-20] MEDS: ASPIRIN 325 MG TAB PO SCH (09:58)
[2017-08-20] MEDS: DOCUSATE SODIUM 50 MG/SENNA 8.6 MG TAB PO SCH ×2 (09:58→21:12)
[2017-08-20] MEDS: MAGNESIUM HYDROXIDE SUSP 30 ML CUP PO SCH ×2 (09:58→21:12)
[2017-08-20] MEDS: ENOXAPARIN SODIUM 40 MG/0.4 ML SYRINGE SQ SCH (12:19)
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
[2017-08-21] VITALS (7 sets, daily range): BP systolic 135–164; BP diastolic 61–76; PULSE 66–100; RESP 16–20; TEMP 97–98.9; O2SAT 93–100
[2017-08-21] MEDS: LACTATED RINGER'S 1000 ML INJ 1,000 ML IV SCH ×2 (01:55→20:53)
[2017-08-21] MEDS: CHLORHEXIDINE GLUCONATE 2 % 1 PACK (2 CLOTHS) TOP SCH (02:41)
[2017-08-21] MEDS: FAMOTIDINE 20 MG/2 ML VIAL IV PUSH SCH (05:31)
[2017-08-21] MEDS: PROPRANOLOL HCL 10 MG TAB PO SCH ×3 (06:05→22:38)
[2017-08-21 06:14] LABS: AUTOMATED NEUTROPHIL # 9.9 TH/MM3 (1.8-7.7); BASOPHIL # 0.1 TH/MM3 (0-0.2); BASOPHIL % 1.1 % (0.0-2.0); EOSINOPHIL # 1.3 TH/MM3 (0-0.4); EOSINOPHIL % 9.9 % (0.0-4.0); HEMATOCRIT 35.7 % (39.0-51.0); HEMOGLOBIN 11.7 GM/DL (13.0-17.0); LYMPH % 7.7 % (9.0-44.0); MEAN CELL VOLUME 90.5 FL (80.0-100.0); MEAN CORPUSCULAR HEMOGLOBIN 29.6 PG (27.0-34.0); MEAN CORPUSCULAR HGB CONC 32.7 % (32.0-36.0); MEAN PLATELET VOLUME 7.8 FL (7.0-11.0); MONO % 7.5 % (0.0-8.0); NEUT % 73.8 % (16.0-70.0); PLATELET COUNT 1153 TH/MM3 (150-450); RED BLOOD COUNT 3.95 MIL/MM3 (4.50-5.90); RED CELL DISTRIBUTION WIDTH 15.8 % (11.6-17.2); WHITE BLOOD COUNT 13.4 TH/MM3 (4.0-11.0)
[2017-08-21 06:39] LABS: ALBUMIN 2.3 GM/DL (3.4-5.0); AST (GOT) 30 U/L (15-37); BICARBONATE 29.1 MEQ/L (21.0-32.0); BLOOD UREA NITROGEN 17 MG/DL (7-18); CALCIUM 9.5 MG/DL (8.5-10.1); CHLORIDE 103 MEQ/L (98-107); GLOMERULAR FILTRATION RATE 66 ML/MIN (>89); GLUCOSE,RANDOM 76 MG/DL (74-106); SODIUM (NA) 142 MEQ/L (136-145)
[2017-08-21 06:41] LABS: ALT (GPT) 42 U/L (12-78)
[2017-08-21 06:42] LABS: ALKALINE PHOSPHATASE 196 U/L (45-117); TOTAL BILIRUBIN ADULT 0.4 MG/DL (0.2-1.0); TOTAL PROTEIN 7.7 GM/DL (6.4-8.2)
[2017-08-21] MEDS: SODIUM CHLORIDE FLUSH BID IV FLUSH SCH ×2 (09:00→20:49)
[2017-08-21] MEDS: DOCUSATE SODIUM 50 MG/SENNA 8.6 MG TAB PO SCH ×2 (09:09→20:50)
[2017-08-21] MEDS: VALPROIC ACID 250 MG CAP PO SCH (09:09)
[2017-08-21] MEDS: ASPIRIN 325 MG TAB PO SCH (09:09)
[2017-08-21] MEDS: MAGNESIUM HYDROXIDE SUSP 30 ML CUP PO SCH ×2 (09:09→20:50)
[2017-08-21] MEDS: LACTULOSE SYRUP 20 GM/30 ML CUP PO SCH (09:09)
[2017-08-21] MEDS: amLODIPine BESYLATE 5 MG TAB PO SCH (09:09)
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
[2017-08-21] MEDS ORDERED: ACETAMINOPHEN 1000 MG/100 ML 100 ML IV PRN (10:00)
[2017-08-21] MEDS: ENOXAPARIN SODIUM 40 MG/0.4 ML SYRINGE SQ SCH (13:27)
[2017-08-21] MEDS ORDERED: FAMOTIDINE 20 MG/2 ML VIAL IV PUSH SCH (13:45)
[2017-08-21] MEDS: FAMOTIDINE 20 MG TAB PO SCH (20:50)
[2017-08-22] MEDS: LACTATED RINGER'S 1000 ML INJ 1,000 ML IV SCH ×2 (06:00→21:08)
[2017-08-22] MEDS: PROPRANOLOL HCL 10 MG TAB PO SCH ×3 (07:36→21:09)
[2017-08-22 08:00] VITALS: BP 160/77; PULSE 94; RESP 18; TEMP 97.2; O2SAT 97
[2017-08-22] MEDS: SODIUM CHLORIDE FLUSH BID IV FLUSH SCH ×2 (09:00→21:00)
[2017-08-22] MEDS: FAMOTIDINE 20 MG TAB PO SCH ×2 (10:22→21:09)
[2017-08-22] MEDS: amLODIPine BESYLATE 5 MG TAB PO SCH (10:22)
[2017-08-22] MEDS: DOCUSATE SODIUM 50 MG/SENNA 8.6 MG TAB PO SCH ×2 (10:22→21:09)
[2017-08-22] MEDS: MAGNESIUM HYDROXIDE SUSP 30 ML CUP PO SCH ×2 (10:22→21:09)
[2017-08-22] MEDS: LACTULOSE SYRUP 20 GM/30 ML CUP PO SCH (10:22)
[2017-08-22] MEDS: ASPIRIN 325 MG TAB PO SCH (10:22)
[2017-08-22] MEDS: NEOMYCIN/POLYMYXIN/BACITRACIN OINT 15 GM TUBE TOPICAL SCH ×2 (10:23→10:36)
[2017-08-22] MEDS: SILVER SULFADIAZINE 1% CR 50 GM JAR TOP SCH ×2 (10:23→10:36)
[2017-08-22] MEDS: SODIUM HYPOCHLORITE 0.125% 500 ML BTL TOPICAL SCH ×2 (10:24→10:35)
[2017-08-22] MEDS: ENOXAPARIN SODIUM 40 MG/0.4 ML SYRINGE SQ SCH (10:27)
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
[2017-08-22 12:00] VITALS: BP 144/69; PULSE 80; RESP 18; TEMP 97.9; O2SAT 97
[2017-08-22 16:00] VITALS: BP 132/63; PULSE 92; RESP 18; TEMP 98.4; O2SAT 96
[2017-08-22 20:00] VITALS: BP 163/72; PULSE 91; RESP 16; TEMP 98.3; O2SAT 97
[2017-08-23] VITALS: BP 147/68; PULSE 82; RESP 18; TEMP 98; O2SAT 98
[2017-08-23 04:24] VITALS: BP 150/72; PULSE 78; RESP 17; TEMP 98; O2SAT 98
[2017-08-23] MEDS: PROPRANOLOL HCL 10 MG TAB PO SCH ×4 (05:59→22:37)
[2017-08-23] MEDS: LACTATED RINGER'S 1000 ML INJ 1,000 ML IV SCH (06:02)
[2017-08-23] MEDS ORDERED: BISACODYL 10 MG SUPP RECTAL ONE (07:15)
[2017-08-23 08:00] VITALS: BP 158/69; PULSE 89; RESP 18; TEMP 98.2; O2SAT 98
[2017-08-23] MEDS: LACTULOSE SYRUP 20 GM/30 ML CUP PO SCH (08:11)
[2017-08-23] MEDS: SODIUM HYPOCHLORITE 0.125% 500 ML BTL TOPICAL SCH (08:12)
[2017-08-23] MEDS: NEOMYCIN/POLYMYXIN/BACITRACIN OINT 15 GM TUBE TOPICAL SCH (08:12)
[2017-08-23] MEDS: FAMOTIDINE 20 MG TAB PO SCH ×2 (08:12→19:27)
[2017-08-23] MEDS: SODIUM CHLORIDE FLUSH BID IV FLUSH SCH ×2 (08:12→19:26)
[2017-08-23] MEDS: MAGNESIUM HYDROXIDE SUSP 30 ML CUP PO SCH ×2 (08:12→19:26)
[2017-08-23] MEDS: amLODIPine BESYLATE 5 MG TAB PO SCH (08:12)
[2017-08-23] MEDS: ASPIRIN 325 MG TAB PO SCH (08:12)
[2017-08-23] MEDS: DOCUSATE SODIUM 50 MG/SENNA 8.6 MG TAB PO SCH ×2 (08:12→19:26)
[2017-08-23] MEDS: SILVER SULFADIAZINE 1% CR 50 GM JAR TOP SCH (08:13)
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
[2017-08-23] MEDS ORDERED: ACETAMINOPHEN 500 MG CPLT PO PRN (10:00)
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
[2017-08-23 12:00] VITALS: BP 142/63; PULSE 77; RESP 18; TEMP 98.7; O2SAT 96
[2017-08-23 16:00] VITALS: BP 141/72; PULSE 79; RESP 18; TEMP 97.5; O2SAT 98
[2017-08-23 20:00] VITALS: BP 169/79; PULSE 93; RESP 18; TEMP 98.2; O2SAT 96
[2017-08-24 00:01] VITALS: BP 173/81; PULSE 95; RESP 18; TEMP 98.2; O2SAT 95
[2017-08-24] MEDS: LACTATED RINGER'S 1000 ML INJ 1,000 ML IV SCH (00:47)
[2017-08-24 04:00] VITALS: BP 159/70; PULSE 71; RESP 18; TEMP 98.8; O2SAT 98
[2017-08-24 05:44] LABS: HEMATOCRIT 38.2 % (39.0-51.0); HEMOGLOBIN 12.7 GM/DL (13.0-17.0)
[2017-08-24] MEDS: PROPRANOLOL HCL 10 MG TAB PO SCH ×3 (06:01→21:10)
[2017-08-24 08:00] VITALS: BP 160/65; PULSE 89; RESP 18; TEMP 98.1; O2SAT 97
[2017-08-24] MEDS: amLODIPine BESYLATE 5 MG TAB PO SCH (08:05)
[2017-08-24] MEDS: DOCUSATE SODIUM 50 MG/SENNA 8.6 MG TAB PO SCH ×2 (08:05→21:00)
[2017-08-24] MEDS: MAGNESIUM HYDROXIDE SUSP 30 ML CUP PO SCH ×2 (08:05→21:00)
[2017-08-24] MEDS: SODIUM CHLORIDE FLUSH BID IV FLUSH SCH ×2 (08:05→21:00)
[2017-08-24] MEDS: LACTULOSE SYRUP 20 GM/30 ML CUP PO SCH (08:05)
[2017-08-24] MEDS: FAMOTIDINE 20 MG TAB PO SCH ×2 (08:05→21:00)
[2017-08-24] MEDS: SILVER SULFADIAZINE 1% CR 50 GM JAR TOP SCH (08:06)
[2017-08-24] MEDS: NEOMYCIN/POLYMYXIN/BACITRACIN OINT 15 GM TUBE TOPICAL SCH (08:06)
[2017-08-24] MEDS: SODIUM HYPOCHLORITE 0.125% 500 ML BTL TOPICAL SCH (08:06)
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
[2017-08-24 11:37] VITALS: BP 118/56; PULSE 105; RESP 18; TEMP 98.4; O2SAT 96
[2017-08-24 16:03] VITALS: BP 109/66; PULSE 94; RESP 18; TEMP 97.3; O2SAT 98
[2017-08-24 20:00] VITALS: BP 133/63; PULSE 79; RESP 20; TEMP 98.5; O2SAT 95
[2017-08-25] VITALS: BP 150/85; PULSE 106; RESP 20; TEMP 98; O2SAT 97
[2017-08-25] MEDS: LACTATED RINGER'S 1000 ML INJ 1,000 ML IV SCH ×2 (00:40→21:51)
[2017-08-25] MEDS: PROPRANOLOL HCL 10 MG TAB PO SCH ×3 (05:03→21:51)
[2017-08-25 08:24] VITALS: BP 143/64; PULSE 89; RESP 17; TEMP 97.6; O2SAT 99
[2017-08-25] MEDS: amLODIPine BESYLATE 5 MG TAB PO SCH (08:36)
[2017-08-25] MEDS: FAMOTIDINE 20 MG TAB PO SCH ×2 (08:36→20:38)
[2017-08-25] MEDS: SILVER SULFADIAZINE 1% CR 50 GM JAR TOP SCH (08:37)
[2017-08-25] MEDS: DOCUSATE SODIUM 50 MG/SENNA 8.6 MG TAB PO SCH ×2 (08:37→20:38)
[2017-08-25] MEDS: SODIUM CHLORIDE FLUSH BID IV FLUSH SCH ×2 (08:50→21:00)
[2017-08-25] MEDS: LACTULOSE SYRUP 20 GM/30 ML CUP PO SCH (08:51)
[2017-08-25] MEDS: MAGNESIUM HYDROXIDE SUSP 30 ML CUP PO SCH ×2 (08:55→20:38)
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
[2017-08-25] MEDS: SODIUM HYPOCHLORITE 0.125% 500 ML BTL TOPICAL SCH (10:58)
[2017-08-25] MEDS: NEOMYCIN/POLYMYXIN/BACITRACIN OINT 15 GM TUBE TOPICAL SCH (10:58)
[2017-08-25] MEDS: REMOVE OLD CATAPRES (CLONIDINE) PATCH T-DERMAL SCH (11:00)
[2017-08-25] MEDS: ENOXAPARIN SODIUM 40 MG/0.4 ML SYRINGE SQ SCH (11:18)
[2017-08-25] MEDS: cloNIDine HCL 0.1 MG/24 HR PATCH T-DERMAL SCH (11:21)
[2017-08-25 12:29] VITALS: BP 108/54; PULSE 97; RESP 15; TEMP 98; O2SAT 98
[2017-08-25 16:12] VITALS: BP 130/62; PULSE 94; RESP 18; TEMP 97.8; O2SAT 97
[2017-08-25 19:55] VITALS: BP 140/61; PULSE 97; RESP 18; TEMP 98.3; O2SAT 100
[2017-08-26] VITALS (11 sets, daily range): BP systolic 80–144; BP diastolic 45–80; PULSE 66–130; RESP 18–45; TEMP 97.3–102.6; O2SAT 90–98
[2017-08-26] MEDS: PROPRANOLOL HCL 10 MG TAB PO SCH ×2 (05:45→22:00)
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
[2017-08-26] MEDS: SODIUM CHLORIDE FLUSH BID IV FLUSH SCH ×2 (09:00→23:34)
[2017-08-26] MEDS: NEOMYCIN/POLYMYXIN/BACITRACIN OINT 15 GM TUBE TOPICAL SCH (09:00)
[2017-08-26] MEDS: FAMOTIDINE 20 MG TAB PO SCH (10:56)
[2017-08-26] MEDS: DOCUSATE SODIUM 50 MG/SENNA 8.6 MG TAB PO SCH (10:56)
[2017-08-26] MEDS: MAGNESIUM HYDROXIDE SUSP 30 ML CUP PO SCH (10:57)
[2017-08-26] MEDS: amLODIPine BESYLATE 5 MG TAB PO SCH (10:57)
[2017-08-26] MEDS: LACTULOSE SYRUP 20 GM/30 ML CUP PO SCH (10:57)
[2017-08-26] MEDS: SILVER SULFADIAZINE 1% CR 50 GM JAR TOP SCH (10:58)
[2017-08-26] MEDS: SODIUM HYPOCHLORITE 0.125% 500 ML BTL TOPICAL SCH (10:58)
[2017-08-26] MEDS: ENOXAPARIN SODIUM 40 MG/0.4 ML SYRINGE SQ SCH (11:00)
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
[2017-08-26] MEDS ORDERED: MAGN30S PO (15:01)
[2017-08-26] MEDS ORDERED: PERI PO (15:01)
[2017-08-26] MEDS ORDERED: ACETAMINOPHEN 1000 MG/100 ML 100 ML IV PRN (22:45)
[2017-08-26] MEDS ORDERED: SODIUM CHLOR 0.9% 1000 ML INJ 1,000 ML IV SCH (22:45)
[2017-08-26] MEDS: LACTATED RINGER'S 1000 ML INJ 1,000 ML IV SCH (23:34)
[2017-08-27] VITALS (8 sets, daily range): BP systolic 92–125; BP diastolic 50–60; PULSE 90–115; RESP 13–27; TEMP 98.4–100.8; O2SAT 99–100
[2017-08-27 00:34] LABS: TROPONIN I 0.33 NG/ML (0.02-0.05)
[2017-08-27 00:43] LABS: BILIRUBIN, URINE NEG (NEG); BLOOD, URINE LARGE (NEG); GLUCOSE,URINE NEG (NEG); KETONE, URINE TRACE mg/dL (NEG); NITRITE,URINE NEG (NEG); URINE LEUKOCYTE ESTERASE LARGE (NEG)
[2017-08-27 00:44] LABS: URINE COLOR YELLOW (YELLW/STRAW)
[2017-08-27 00:45] LABS: BACTERIA, URINE MANY /hpf; WHITE BLOOD CELL CLUMPS MANY
[2017-08-27] MEDS: PROPRANOLOL HCL 10 MG TAB PO SCH ×3 (05:28→21:45)
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
[2017-08-27] MEDS: MAGNESIUM HYDROXIDE SUSP 30 ML CUP PO SCH ×2 (08:23→21:00)
[2017-08-27] MEDS: DOCUSATE SODIUM 50 MG/SENNA 8.6 MG TAB PO SCH ×2 (08:23→21:45)
[2017-08-27] MEDS: LACTULOSE SYRUP 20 GM/30 ML CUP PO SCH (08:23)
[2017-08-27] MEDS: amLODIPine BESYLATE 5 MG TAB PO SCH (08:23)
[2017-08-27] MEDS: FAMOTIDINE 20 MG TAB PO SCH ×2 (08:23→21:45)
[2017-08-27] MEDS: SODIUM CHLORIDE FLUSH BID IV FLUSH SCH ×2 (08:40→21:00)
[2017-08-27] MEDS: SODIUM HYPOCHLORITE 0.125% 500 ML BTL TOPICAL SCH (08:40)
[2017-08-27] MEDS: SILVER SULFADIAZINE 1% CR 50 GM JAR TOP SCH (08:40)
[2017-08-27] MEDS: NEOMYCIN/POLYMYXIN/BACITRACIN OINT 15 GM TUBE TOPICAL SCH (08:41)
--- NOTE | 2017-08-27 09:11 | RADRPT ---
EXAM DATE/TIME: 08/27/2017 08:48 [facility] COMPARISON: CHEST SINGLE AP, August 15, 2017, 2:49. INDICATIONS : Shortness of breath. MEDICAL HISTORY : None. SURGICAL HISTORY : None. ENCOUNTER: Initial ACUITY: 1 week PAIN SCORE: 0/10 LOCATION: Bilateral chest FINDINGS: A single view of the chest demonstrates the lungs to be symmetrically aerated without evidence of mas s, infiltrate or effusion. Mild compensated cardiomegaly. Osseous structures are intact. CONCLUSION: Mild compensated cardiomegaly. No pneumothorax. No failure. Aquilino Manzano MD FACR on August 27, 2017 at 9:09 Board Certified Radiologist. This report was verified electronically.
[2017-08-27] MEDS: ENOXAPARIN SODIUM 40 MG/0.4 ML SYRINGE SQ SCH (10:29)
[2017-08-27 10:33] LABS: AUTOMATED NEUTROPHIL # 40.8 TH/MM3 (1.8-7.7); BASOPHIL # 0.1 TH/MM3 (0-0.2); BASOPHIL % 0.2 % (0.0-2.0); HEMATOCRIT 30.6 % (39.0-51.0); HEMOGLOBIN 9.9 GM/DL (13.0-17.0); LYMPH % 1.2 % (9.0-44.0); LYMPHOCYTE # 0.5 TH/MM3 (1.0-4.8); MEAN CELL VOLUME 87.9 FL (80.0-100.0); MEAN CORPUSCULAR HEMOGLOBIN 28.3 PG (27.0-34.0); MEAN CORPUSCULAR HGB CONC 32.2 % (32.0-36.0); MONO % 3.3 % (0.0-8.0); MONOCYTE # 1.4 TH/MM3 (0-0.9); NEUT % 95.3 % (16.0-70.0); PLATELET COUNT 429 TH/MM3 (150-450); RED BLOOD COUNT 3.48 MIL/MM3 (4.50-5.90); RED CELL DISTRIBUTION WIDTH 15.9 % (11.6-17.2); WHITE BLOOD COUNT 42.9 TH/MM3 (4.0-11.0)
[2017-08-27 11:01] LABS: ALBUMIN 2.2 GM/DL (3.4-5.0); AST (GOT) 195 U/L (15-37); BICARBONATE 24.6 MEQ/L (21.0-32.0); BLOOD UREA NITROGEN 45 MG/DL (7-18); CALCIUM 8.3 MG/DL (8.5-10.1); CHLORIDE 105 MEQ/L (98-107); CREATININE 2.35 MG/DL (0.60-1.30); GLOMERULAR FILTRATION RATE 28 ML/MIN (>89); GLUCOSE,RANDOM 100 MG/DL (74-106); SODIUM (NA) 142 MEQ/L (136-145)
[2017-08-27 11:05] LABS: ALKALINE PHOSPHATASE 510 U/L (45-117); ALT (GPT) 124 U/L (12-78); TOTAL BILIRUBIN ADULT 1.8 MG/DL (0.2-1.0); TOTAL PROTEIN 6.4 GM/DL (6.4-8.2)
[2017-08-27 11:08] LABS: BANDS 29 % (0-6); LYMPHOCYTES 3 % (9-44); METAMYELOCYTES 3 % (0-1); MONOCYTES 3 % (0-8); MYELOCYTES 4 % (0-0); NEUTROPHIL # MANUAL DIFF 40.3 TH/MM3 (1.8-7.7); POLYS (SEG NEUTROPHILS) 58 % (16-70)
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
[2017-08-27] MEDS: LACTATED RINGER'S 1000 ML INJ 1,000 ML IV SCH ×3 (11:45→23:02)
[2017-08-27] MEDS ORDERED: LACTATED RINGER'S 1000 ML INJ 1,000 ML IV ONE (11:45)
[2017-08-27] MEDS ORDERED: Vancomycin Consult Pharmacy 1 EA OTHER SCH (11:45)
[2017-08-27] MEDS ORDERED: VANCOMYCIN INJ 1,000 MG in SODIUM CHLOR 0.9% 250 ML INJ 250 ML IV SCH (11:45)
[2017-08-27] MEDS ORDERED: VANCOMYCIN INJ 1,250 MG in SODIUM CHLOR 0.9% 250 ML INJ 250 ML IV ONE (13:00)
[2017-08-27] MEDS: PIPERACIL-TAZO 2.25 GM PREMIX 50 ML IV SCH ×2 (13:38→18:47)
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
[2017-08-28] VITALS: BP 115/56; PULSE 100; RESP 14; TEMP 98.2; O2SAT 100
[2017-08-28] MEDS: PIPERACIL-TAZO 2.25 GM PREMIX 50 ML IV SCH ×4 (01:35→18:06)
[2017-08-28 04:00] VITALS: BP 107/88; PULSE 100; RESP 16; TEMP 98.6; O2SAT 100
[2017-08-28 04:19] LABS: HEMATOCRIT 30.1 % (39.0-51.0); HEMOGLOBIN 9.8 GM/DL (13.0-17.0); MEAN CELL VOLUME 87.6 FL (80.0-100.0); MEAN CORPUSCULAR HEMOGLOBIN 28.4 PG (27.0-34.0); MEAN CORPUSCULAR HGB CONC 32.4 % (32.0-36.0); MEAN PLATELET VOLUME 8.2 FL (7.0-11.0); PLATELET COUNT 361 TH/MM3 (150-450); RED BLOOD COUNT 3.44 MIL/MM3 (4.50-5.90); RED CELL DISTRIBUTION WIDTH 16.2 % (11.6-17.2); WHITE BLOOD COUNT 49.4 TH/MM3 (4.0-11.0)
[2017-08-28 04:32] LABS: ALBUMIN 2.1 GM/DL (3.4-5.0); ALT (GPT) 81 U/L (12-78); AST (GOT) 104 U/L (15-37); BICARBONATE 27.6 MEQ/L (21.0-32.0); BLOOD UREA NITROGEN 38 MG/DL (7-18); CALCIUM 8.4 MG/DL (8.5-10.1); CHLORIDE 106 MEQ/L (98-107); CREATININE 1.81 MG/DL (0.60-1.30); GLOMERULAR FILTRATION RATE 37 ML/MIN (>89); GLUCOSE,RANDOM 86 MG/DL (74-106); SODIUM (NA) 144 MEQ/L (136-145)
[2017-08-28 04:34] LABS: ALKALINE PHOSPHATASE 401 U/L (45-117); TOTAL PROTEIN 6.7 GM/DL (6.4-8.2)
[2017-08-28 05:17] LABS: BANDS 19 % (0-6); METAMYELOCYTES 2 % (0-1); MONOCYTES 3 % (0-8); NEUTROPHIL # MANUAL DIFF 47.4 TH/MM3 (1.8-7.7); POLYS (SEG NEUTROPHILS) 75 % (16-70)
[2017-08-28] MEDS: PROPRANOLOL HCL 10 MG TAB PO SCH ×3 (06:00→22:00)
[2017-08-28] MEDS: LACTATED RINGER'S 1000 ML INJ 1,000 ML IV SCH ×3 (06:54→22:25)
[2017-08-28 08:00] VITALS: BP 124/63; PULSE 108; RESP 21; TEMP 98.8; O2SAT 100
[2017-08-28] MEDS: MAGNESIUM HYDROXIDE SUSP 30 ML CUP PO SCH ×2 (08:04→21:00)
[2017-08-28] MEDS: SILVER SULFADIAZINE 1% CR 50 GM JAR TOP SCH (08:04)
[2017-08-28] MEDS: LACTULOSE SYRUP 20 GM/30 ML CUP PO SCH (08:04)
[2017-08-28] MEDS: amLODIPine BESYLATE 5 MG TAB PO SCH (08:04)
[2017-08-28] MEDS: FAMOTIDINE 20 MG TAB PO SCH ×2 (08:04→21:00)
[2017-08-28] MEDS: SODIUM CHLORIDE FLUSH BID IV FLUSH SCH ×2 (08:04→21:00)
[2017-08-28] MEDS: DOCUSATE SODIUM 50 MG/SENNA 8.6 MG TAB PO SCH ×2 (08:04→21:00)
[2017-08-28] MEDS: NEOMYCIN/POLYMYXIN/BACITRACIN OINT 15 GM TUBE TOPICAL SCH (08:05)
[2017-08-28] MEDS: SODIUM HYPOCHLORITE 0.125% 500 ML BTL TOPICAL SCH (08:05)
[2017-08-28] MEDS ORDERED: BISACODYL EC 5 MG TABEC PO ONE (08:15)
[2017-08-28] MEDS ORDERED: BISACODYL 10 MG SUPP RECTAL ONE (08:30)
[2017-08-28] MEDS: ENOXAPARIN SODIUM 40 MG/0.4 ML SYRINGE SQ SCH (10:22)
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
[2017-08-28] MEDS ORDERED: VANCOMYCIN INJ 1,250 MG in SODIUM CHLOR 0.9% 250 ML INJ 250 ML IV ONE (11:00)
[2017-08-28 12:00] VITALS: BP 129/58; PULSE 117; RESP 21; TEMP 98; O2SAT 100
[2017-08-28 16:00] VITALS: BP 124/60; PULSE 87; RESP 19; TEMP 99; O2SAT 100
[2017-08-28 20:00] VITALS: BP 125/60; PULSE 92; RESP 28; TEMP 99; O2SAT 100
[2017-08-29] VITALS (7 sets, daily range): BP systolic 109–160; BP diastolic 65–83; PULSE 70–96; RESP 17–33; TEMP 97.8–99; O2SAT 96–100
[2017-08-29] MEDS: PIPERACIL-TAZO 2.25 GM PREMIX 50 ML IV SCH ×4 (02:06→21:13)
[2017-08-29] MEDS: LACTATED RINGER'S 1000 ML INJ 1,000 ML IV SCH ×2 (03:45→20:33)
[2017-08-29 05:28] LABS: BASOPHIL # 0.3 TH/MM3 (0-0.2); BASOPHIL % 0.6 % (0.0-2.0); EOSINOPHIL # 2.7 TH/MM3 (0-0.4); HEMATOCRIT 27.5 % (39.0-51.0); HEMOGLOBIN 9.2 GM/DL (13.0-17.0); LYMPHOCYTE # 1.4 TH/MM3 (1.0-4.8); MEAN CELL VOLUME 87.7 FL (80.0-100.0); MEAN CORPUSCULAR HEMOGLOBIN 29.3 PG (27.0-34.0); MEAN CORPUSCULAR HGB CONC 33.4 % (32.0-36.0); MEAN PLATELET VOLUME 8.7 FL (7.0-11.0); MONO % 3.1 % (0.0-8.0); MONOCYTE # 1.4 TH/MM3 (0-0.9); NEUT % 87.3 % (16.0-70.0); PLATELET COUNT 276 TH/MM3 (150-450); RED BLOOD COUNT 3.13 MIL/MM3 (4.50-5.90); RED CELL DISTRIBUTION WIDTH 16.1 % (11.6-17.2); WHITE BLOOD COUNT 45.8 TH/MM3 (4.0-11.0)
[2017-08-29 05:34] LABS: ALBUMIN 1.8 GM/DL (3.4-5.0); AST (GOT) 44 U/L (15-37); BLOOD UREA NITROGEN 28 MG/DL (7-18); CALCIUM 8.2 MG/DL (8.5-10.1); CHLORIDE 107 MEQ/L (98-107); CREATININE 1.36 MG/DL (0.60-1.30); GLOMERULAR FILTRATION RATE 52 ML/MIN (>89); GLUCOSE,RANDOM 75 MG/DL (74-106); SODIUM (NA) 145 MEQ/L (136-145)
[2017-08-29 05:35] LABS: ALT (GPT) 36 U/L (12-78)
[2017-08-29 05:37] LABS: ALKALINE PHOSPHATASE 388 U/L (45-117); RANDOM VANCOMYCIN 15.1 COMMENT; TOTAL BILIRUBIN ADULT 0.6 MG/DL (0.2-1.0); TOTAL PROTEIN 6.1 GM/DL (6.4-8.2)
[2017-08-29] MEDS: PROPRANOLOL HCL 10 MG TAB PO SCH ×2 (06:00→21:16)
[2017-08-29 06:54] LABS: BANDS 12 % (0-6); BASOPHILS 1 % (0-2); NEUTROPHIL # MANUAL DIFF 43.5 TH/MM3 (1.8-7.7); POLYS (SEG NEUTROPHILS) 83 % (16-70)
[2017-08-29 06:55] LABS: DOHLE BODIES PRESENT (NONE SEEN); TOXIC GRANULATION 1+ (NORMAL)
[2017-08-29] MEDS: SODIUM HYPOCHLORITE 0.125% 500 ML BTL TOPICAL SCH (09:00)
[2017-08-29] MEDS: DOCUSATE SODIUM 50 MG/SENNA 8.6 MG TAB PO SCH ×2 (09:00→21:16)
[2017-08-29] MEDS: LACTULOSE SYRUP 20 GM/30 ML CUP PO SCH (09:00)
[2017-08-29] MEDS: MAGNESIUM HYDROXIDE SUSP 30 ML CUP PO SCH ×2 (09:00→21:00)
[2017-08-29] MEDS: SODIUM CHLORIDE FLUSH BID IV FLUSH SCH ×2 (09:00→21:00)
[2017-08-29] MEDS: NEOMYCIN/POLYMYXIN/BACITRACIN OINT 15 GM TUBE TOPICAL SCH (09:00)
[2017-08-29] MEDS: SILVER SULFADIAZINE 1% CR 50 GM JAR TOP SCH (09:00)
[2017-08-29] MEDS: amLODIPine BESYLATE 5 MG TAB PO SCH (10:57)
[2017-08-29] MEDS: FAMOTIDINE 20 MG TAB PO SCH ×2 (10:59→21:16)
[2017-08-29] MEDS ORDERED: VANCOMYCIN INJ 1,250 MG in SODIUM CHLOR 0.9% 250 ML INJ 250 ML IV ONE (11:00)
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
[2017-08-29] MEDS: ENOXAPARIN SODIUM 40 MG/0.4 ML SYRINGE SQ SCH (12:29)
[2017-08-30] MEDS: LACTATED RINGER'S 1000 ML INJ 1,000 ML IV SCH ×4 (02:21→22:37)
[2017-08-30] MEDS: PIPERACIL-TAZO 2.25 GM PREMIX 50 ML IV SCH ×4 (03:02→20:24)
[2017-08-30] MEDS: PROPRANOLOL HCL 10 MG TAB PO SCH ×3 (05:42→22:37)
[2017-08-30 06:01] VITALS: BP 138/67; PULSE 81; RESP 18; TEMP 98.4; O2SAT 96
[2017-08-30 07:55] VITALS: BP 136/65; PULSE 65; RESP 18; TEMP 98.6; O2SAT 98
[2017-08-30] MEDS: FAMOTIDINE 20 MG TAB PO SCH ×2 (08:51→20:25)
[2017-08-30] MEDS: DOCUSATE SODIUM 50 MG/SENNA 8.6 MG TAB PO SCH ×2 (08:51→20:25)
[2017-08-30] MEDS: amLODIPine BESYLATE 5 MG TAB PO SCH (08:51)
[2017-08-30] MEDS: SILVER SULFADIAZINE 1% CR 50 GM JAR TOP SCH (08:52)
[2017-08-30] MEDS: SODIUM CHLORIDE FLUSH BID IV FLUSH SCH ×2 (08:52→20:24)
[2017-08-30] MEDS: LACTULOSE SYRUP 20 GM/30 ML CUP PO SCH (08:52)
[2017-08-30] MEDS: MAGNESIUM HYDROXIDE SUSP 30 ML CUP PO SCH ×2 (08:52→20:26)
[2017-08-30] MEDS: NEOMYCIN/POLYMYXIN/BACITRACIN OINT 15 GM TUBE TOPICAL SCH (08:59)
[2017-08-30] MEDS: SODIUM HYPOCHLORITE 0.125% 500 ML BTL TOPICAL SCH (08:59)
[2017-08-30] MEDS: ENOXAPARIN SODIUM 40 MG/0.4 ML SYRINGE SQ SCH (11:35)
[2017-08-30 11:37] VITALS: BP 120/60; PULSE 70; RESP 18; TEMP 97.1; O2SAT 95
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
[2017-08-30 13:22] LABS: AUTOMATED NEUTROPHIL # 24.1 TH/MM3 (1.8-7.7); BASOPHIL # 0.4 TH/MM3 (0-0.2); BASOPHIL % 1.2 % (0.0-2.0); EOSINOPHIL # 4.5 TH/MM3 (0-0.4); EOSINOPHIL % 14.3 % (0.0-4.0); HEMATOCRIT 31.4 % (39.0-51.0); HEMOGLOBIN 10.1 GM/DL (13.0-17.0); LYMPHOCYTE # 1.3 TH/MM3 (1.0-4.8); MEAN CELL VOLUME 88.3 FL (80.0-100.0); MEAN CORPUSCULAR HEMOGLOBIN 28.4 PG (27.0-34.0); MEAN CORPUSCULAR HGB CONC 32.2 % (32.0-36.0); MEAN PLATELET VOLUME 9.1 FL (7.0-11.0); MONO % 3.4 % (0.0-8.0); MONOCYTE # 1.1 TH/MM3 (0-0.9); NEUT % 77.1 % (16.0-70.0); PLATELET COUNT 324 TH/MM3 (150-450); RED BLOOD COUNT 3.56 MIL/MM3 (4.50-5.90); RED CELL DISTRIBUTION WIDTH 15.9 % (11.6-17.2); WHITE BLOOD COUNT 31.3 TH/MM3 (4.0-11.0)
[2017-08-30 13:54] LABS: ALKALINE PHOSPHATASE 423 U/L (45-117); ALT (GPT) 21 U/L (12-78); RANDOM VANCOMYCIN 8.1 COMMENT; TOTAL BILIRUBIN ADULT 0.6 MG/DL (0.2-1.0); TOTAL PROTEIN 6.6 GM/DL (6.4-8.2)
[2017-08-30 14:04] LABS: BLOOD UREA NITROGEN 20 MG/DL (7-18); CALCIUM 8.5 MG/DL (8.5-10.1); CHLORIDE 106 MEQ/L (98-107); CREATININE 1.09 MG/DL (0.60-1.30); GLOMERULAR FILTRATION RATE 67 ML/MIN (>89); GLUCOSE,RANDOM 75 MG/DL (74-106); SODIUM (NA) 142 MEQ/L (136-145)
[2017-08-30 14:05] LABS: AST (GOT) 32 U/L (15-37); BANDS 7 % (0-6); DOHLE BODIES PRESENT (NONE SEEN); LYMPHOCYTES 7 % (9-44); MONOCYTES 6 % (0-8); NEUTROPHIL # MANUAL DIFF 21.3 TH/MM3 (1.8-7.7); POLYS (SEG NEUTROPHILS) 61 % (16-70)
[2017-08-30] MEDS: VALPROIC ACID SYRUP 250 MG/5 ML UDC PO SCH ×2 (14:20→20:24)
[2017-08-30] MEDS ORDERED: VANCOMYCIN 1,000 MG/NS 250 ML IV SCH ×2 (15:00)
[2017-08-30 15:48] VITALS: BP 122/58; PULSE 65; RESP 18; TEMP 97.9; O2SAT 96
[2017-08-30 22:05] VITALS: BP 137/66; PULSE 64; RESP 16; TEMP 97.9; O2SAT 97
[2017-08-31 01:40] VITALS: BP 160/76; PULSE 68; RESP 16; TEMP 97.6; O2SAT 99
[2017-08-31] MEDS: LACTATED RINGER'S 1000 ML INJ 1,000 ML IV SCH ×3 (02:38→18:38)
[2017-08-31] MEDS: PIPERACIL-TAZO 2.25 GM PREMIX 50 ML IV SCH ×2 (03:16→08:52)
[2017-08-31] MEDS: PROPRANOLOL HCL 10 MG TAB PO SCH ×3 (04:50→21:10)
[2017-08-31 06:00] VITALS: BP 171/91; PULSE 65; RESP 16; TEMP 97.9; O2SAT 97
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
[2017-08-31] MEDS: VALPROIC ACID SYRUP 250 MG/5 ML UDC PO SCH ×2 (08:53→20:04)
[2017-08-31] MEDS: amLODIPine BESYLATE 5 MG TAB PO SCH (08:53)
[2017-08-31] MEDS: FAMOTIDINE 20 MG TAB PO SCH ×2 (08:53→20:04)
[2017-08-31] MEDS: LACTULOSE SYRUP 20 GM/30 ML CUP PO SCH (08:54)
[2017-08-31] MEDS: SILVER SULFADIAZINE 1% CR 50 GM JAR TOP SCH (08:54)
[2017-08-31] MEDS: SODIUM CHLORIDE FLUSH BID IV FLUSH SCH ×2 (08:54→20:04)
[2017-08-31] MEDS: MAGNESIUM HYDROXIDE SUSP 30 ML CUP PO SCH ×2 (08:54→20:04)
[2017-08-31] MEDS: DOCUSATE SODIUM 50 MG/SENNA 8.6 MG TAB PO SCH ×2 (08:54→20:04)
[2017-08-31] MEDS: NEOMYCIN/POLYMYXIN/BACITRACIN OINT 15 GM TUBE TOPICAL SCH (08:55)
[2017-08-31] MEDS: SODIUM HYPOCHLORITE 0.125% 500 ML BTL TOPICAL SCH (08:55)
[2017-08-31 11:36] VITALS: BP 159/77; PULSE 66; RESP 18; TEMP 98.6; O2SAT 98
[2017-08-31] MEDS: ENOXAPARIN SODIUM 40 MG/0.4 ML SYRINGE SQ SCH (11:40)
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
[2017-08-31 15:53] VITALS: BP 141/71; PULSE 67; RESP 18; TEMP 98; O2SAT 94
[2017-08-31] MEDS: PIPERACIL-TAZO 3.375 GM PREMIX 50 ML IV SCH (16:59)
[2017-08-31 20:00] VITALS: BP 166/80; PULSE 66; RESP 17; TEMP 97.3; O2SAT 97
[2017-09-01] MEDS: LACTATED RINGER'S 1000 ML INJ 1,000 ML IV SCH ×2 (02:07→14:35)
[2017-09-01] MEDS: PIPERACIL-TAZO 3.375 GM PREMIX 50 ML IV SCH ×3 (02:07→16:12)
[2017-09-01 04:43] LABS: AUTOMATED NEUTROPHIL # 11.5 TH/MM3 (1.8-7.7); BASOPHIL # 0.2 TH/MM3 (0-0.2); BASOPHIL % 1.2 % (0.0-2.0); EOSINOPHIL # 3.5 TH/MM3 (0-0.4); EOSINOPHIL % 19.3 % (0.0-4.0); HEMATOCRIT 34.1 % (39.0-51.0); HEMOGLOBIN 11.2 GM/DL (13.0-17.0); LYMPHOCYTE # 1.7 TH/MM3 (1.0-4.8); MEAN CELL VOLUME 87.8 FL (80.0-100.0); MEAN CORPUSCULAR HEMOGLOBIN 28.9 PG (27.0-34.0); MEAN CORPUSCULAR HGB CONC 32.9 % (32.0-36.0); MEAN PLATELET VOLUME 9.4 FL (7.0-11.0); MONO % 7.7 % (0.0-8.0); MONOCYTE # 1.4 TH/MM3 (0-0.9); NEUT % 62.8 % (16.0-70.0); PLATELET COUNT 326 TH/MM3 (150-450); RED BLOOD COUNT 3.88 MIL/MM3 (4.50-5.90); RED CELL DISTRIBUTION WIDTH 16.1 % (11.6-17.2); WHITE BLOOD COUNT 18.4 TH/MM3 (4.0-11.0)
[2017-09-01 05:11] LABS: ALKALINE PHOSPHATASE 289 U/L (45-117); TOTAL BILIRUBIN ADULT 0.6 MG/DL (0.2-1.0); TOTAL PROTEIN 6.6 GM/DL (6.4-8.2)
[2017-09-01 05:13] LABS: ALBUMIN 2.1 GM/DL (3.4-5.0); ALT (GPT) 16 U/L (12-78); AST (GOT) 26 U/L (15-37); BICARBONATE 29.5 MEQ/L (21.0-32.0); BLOOD UREA NITROGEN 13 MG/DL (7-18); CALCIUM 8.3 MG/DL (8.5-10.1); CHLORIDE 104 MEQ/L (98-107); CREATININE 0.83 MG/DL (0.60-1.30); GLOMERULAR FILTRATION RATE 92 ML/MIN (>89); GLUCOSE,RANDOM 83 MG/DL (74-106); SODIUM (NA) 142 MEQ/L (136-145)
[2017-09-01] MEDS: PROPRANOLOL HCL 10 MG TAB PO SCH ×3 (05:26→22:50)
[2017-09-01 06:51] LABS: BANDS 10 % (0-6); BASOPHILS 1 % (0-2); LYMPHOCYTES 10 % (9-44); MONOCYTES 7 % (0-8); MYELOCYTES 1 % (0-0); NEUTROPHIL # MANUAL DIFF 12.1 TH/MM3 (1.8-7.7); POLYS (SEG NEUTROPHILS) 55 % (16-70)
[2017-09-01 07:55] VITALS: BP 171/76; PULSE 62; RESP 19; TEMP 97.1; O2SAT 99
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
[2017-09-01] MEDS: FAMOTIDINE 20 MG TAB PO SCH ×2 (09:00→22:50)
[2017-09-01] MEDS: DOCUSATE SODIUM 50 MG/SENNA 8.6 MG TAB PO SCH ×2 (09:25→22:50)
[2017-09-01] MEDS: VALPROIC ACID SYRUP 250 MG/5 ML UDC PO SCH (09:25)
[2017-09-01] MEDS: MAGNESIUM HYDROXIDE SUSP 30 ML CUP PO SCH ×2 (09:25→22:51)
[2017-09-01] MEDS: SODIUM CHLORIDE FLUSH BID IV FLUSH SCH ×2 (09:27→22:50)
[2017-09-01] MEDS: SILVER SULFADIAZINE 1% CR 50 GM JAR TOP SCH (09:28)
[2017-09-01] MEDS: NEOMYCIN/POLYMYXIN/BACITRACIN OINT 15 GM TUBE TOPICAL SCH (09:36)
[2017-09-01] MEDS: cloNIDine HCL 0.1 MG/24 HR PATCH T-DERMAL SCH (11:00)
[2017-09-01] MEDS: REMOVE OLD CATAPRES (CLONIDINE) PATCH T-DERMAL SCH (11:00)
[2017-09-01 12:07] VITALS: BP 149/81; PULSE 78; RESP 18; TEMP 97.2; O2SAT 97
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
[2017-09-01] MEDS ORDERED: ACETAMINOPHEN 325 MG TAB PO PRN (12:30)
[2017-09-01] MEDS: MEGESTROL ACETATE SUSP 400 MG/10 ML CUP PO SCH (12:56)
[2017-09-01] MEDS: ENOXAPARIN SODIUM 40 MG/0.4 ML SYRINGE SQ SCH (12:57)
[2017-09-01] MEDS: BISACODYL 10 MG SUPP RECTAL SCH (12:57)
[2017-09-01] MEDS ORDERED: PHARMACY ORDERED LAB ONE (14:45)
[2017-09-01 16:00] VITALS: BP 138/63; PULSE 84; RESP 17; TEMP 97.7; O2SAT 98
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
[2017-09-01 20:00] VITALS: BP 166/83; PULSE 88; RESP 16; TEMP 97.4; O2SAT 98
[2017-09-01] MEDS: VALPROIC ACID 250 MG CAP PO SCH (23:10)
[2017-09-01] MEDS: SODIUM HYPOCHLORITE 0.125% 500 ML BTL TOPICAL SCH (23:11)
[2017-09-02] VITALS (7 sets, daily range): BP systolic 114–153; BP diastolic 57–74; PULSE 67–89; RESP 16–18; TEMP 96.9–98; O2SAT 93–98
[2017-09-02] MEDS: LACTATED RINGER'S 1000 ML INJ 1,000 ML IV SCH ×2 (00:57→15:10)
[2017-09-02] MEDS: PIPERACIL-TAZO 3.375 GM PREMIX 50 ML IV SCH (00:57)
[2017-09-02] MEDS: PROPRANOLOL HCL 10 MG TAB PO SCH ×3 (05:00→22:46)
[2017-09-02] MEDS: MAGNESIUM HYDROXIDE SUSP 30 ML CUP PO SCH ×2 (08:28→22:47)
[2017-09-02] MEDS: MEGESTROL ACETATE SUSP 400 MG/10 ML CUP PO SCH (08:28)
[2017-09-02] MEDS: SULFAMETHOXAZOLE-TRIMETHOPRIM DS 800-160 MG TAB PO SCH ×2 (08:29→22:46)
[2017-09-02] MEDS: FAMOTIDINE 20 MG TAB PO SCH ×2 (08:29→22:46)
[2017-09-02] MEDS: VALPROIC ACID 250 MG CAP PO SCH ×2 (08:29→22:46)
[2017-09-02] MEDS: DOCUSATE SODIUM 50 MG/SENNA 8.6 MG TAB PO SCH ×2 (08:29→22:46)
[2017-09-02] MEDS: NEOMYCIN/POLYMYXIN/BACITRACIN OINT 15 GM TUBE TOPICAL SCH (08:35)
[2017-09-02] MEDS: SILVER SULFADIAZINE 1% CR 50 GM JAR TOP SCH (08:35)
[2017-09-02] MEDS: BISACODYL 10 MG SUPP RECTAL SCH (08:36)
[2017-09-02] MEDS: SODIUM HYPOCHLORITE 0.125% 500 ML BTL TOPICAL SCH (08:36)
[2017-09-02] MEDS: SODIUM CHLORIDE FLUSH BID IV FLUSH SCH ×2 (08:37→22:47)
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
[2017-09-02] MEDS: ENOXAPARIN SODIUM 40 MG/0.4 ML SYRINGE SQ SCH (13:21)
[2017-09-02] MEDS ORDERED: ONDANSETRON ODT 4 MG TAB PO PRN (15:45)
[2017-09-03 03:29] VITALS: BP 139/64; PULSE 81; RESP 18; TEMP 98.1; O2SAT 95
[2017-09-03] MEDS: LACTATED RINGER'S 1000 ML INJ 1,000 ML IV SCH ×2 (06:10→15:35)
[2017-09-03] MEDS: PROPRANOLOL HCL 10 MG TAB PO SCH ×3 (06:10→22:34)
[2017-09-03] MEDS: BISACODYL 10 MG SUPP RECTAL SCH (08:13)
[2017-09-03] MEDS: FAMOTIDINE 20 MG TAB PO SCH ×2 (09:09→22:33)
[2017-09-03] MEDS: VALPROIC ACID 250 MG CAP PO SCH ×2 (09:09→22:33)
[2017-09-03] MEDS: MAGNESIUM HYDROXIDE SUSP 30 ML CUP PO SCH ×2 (09:09→22:32)
[2017-09-03] MEDS: SULFAMETHOXAZOLE-TRIMETHOPRIM DS 800-160 MG TAB PO SCH ×2 (09:09→22:33)
[2017-09-03] MEDS: MEGESTROL ACETATE SUSP 400 MG/10 ML CUP PO SCH (09:09)
[2017-09-03] MEDS: NEOMYCIN/POLYMYXIN/BACITRACIN OINT 15 GM TUBE TOPICAL SCH (09:10)
[2017-09-03] MEDS: DOCUSATE SODIUM 50 MG/SENNA 8.6 MG TAB PO SCH ×2 (09:10→22:33)
[2017-09-03] MEDS: SODIUM CHLORIDE FLUSH BID IV FLUSH SCH ×2 (09:10→22:32)
[2017-09-03] MEDS: SODIUM HYPOCHLORITE 0.125% 500 ML BTL TOPICAL SCH (09:10)
[2017-09-03] MEDS: SILVER SULFADIAZINE 1% CR 50 GM JAR TOP SCH (09:11)
[2017-09-03 09:22] VITALS: BP 152/68; PULSE 70; RESP 18; TEMP 98.1; O2SAT 100
[2017-09-03] MEDS: ENOXAPARIN SODIUM 40 MG/0.4 ML SYRINGE SQ SCH (10:49)
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
[2017-09-03] MEDS: LACTULOSE SYRUP 20 GM/30 ML CUP PO SCH (11:48)
[2017-09-03 13:00] VITALS: BP 117/64; PULSE 80; RESP 18; TEMP 97.6; O2SAT 97
[2017-09-03 16:00] VITALS: BP 128/60; PULSE 90; RESP 18; TEMP 97.3; O2SAT 97
[2017-09-03 20:05] VITALS: BP 136/72; PULSE 75; RESP 18; TEMP 98.1; O2SAT 96
[2017-09-03 22:48] VITALS: BP 176/81; PULSE 86; RESP 18; TEMP 98.2; O2SAT 95
[2017-09-04 03:06] VITALS: BP 105/70; PULSE 85; RESP 17; TEMP 98.6; O2SAT 97
[2017-09-04] MEDS: PROPRANOLOL HCL 10 MG TAB PO SCH ×3 (04:53→20:36)
[2017-09-04] MEDS: LACTATED RINGER'S 1000 ML INJ 1,000 ML IV SCH ×2 (07:10→18:45)
[2017-09-04] MEDS: LACTULOSE SYRUP 20 GM/30 ML CUP PO SCH (07:23)
[2017-09-04] MEDS: BISACODYL 10 MG SUPP RECTAL SCH (07:23)
[2017-09-04] MEDS: MAGNESIUM HYDROXIDE SUSP 30 ML CUP PO SCH ×2 (07:23→20:36)
[2017-09-04] MEDS: DOCUSATE SODIUM 50 MG/SENNA 8.6 MG TAB PO SCH ×3 (08:28→20:36)
[2017-09-04] MEDS: SULFAMETHOXAZOLE-TRIMETHOPRIM DS 800-160 MG TAB PO SCH ×4 (08:28→20:36)
[2017-09-04] MEDS: SODIUM CHLORIDE FLUSH BID IV FLUSH SCH ×2 (08:28→20:37)
[2017-09-04] MEDS: VALPROIC ACID 250 MG CAP PO SCH ×3 (08:29→20:36)
[2017-09-04] MEDS: MEGESTROL ACETATE SUSP 400 MG/10 ML CUP PO SCH ×3 (08:29→14:40)
[2017-09-04] MEDS: FAMOTIDINE 20 MG TAB PO SCH ×3 (08:29→20:36)
[2017-09-04] MEDS: NEOMYCIN/POLYMYXIN/BACITRACIN OINT 15 GM TUBE TOPICAL SCH (08:30)
[2017-09-04] MEDS: SODIUM HYPOCHLORITE 0.125% 500 ML BTL TOPICAL SCH (08:30)
[2017-09-04] MEDS: SILVER SULFADIAZINE 1% CR 50 GM JAR TOP SCH (08:30)
[2017-09-04] MEDS: ENOXAPARIN SODIUM 40 MG/0.4 ML SYRINGE SQ SCH (11:11)
[2017-09-04 11:14] VITALS: BP 131/63; PULSE 86; RESP 16; TEMP 98.4; O2SAT 99
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
[2017-09-04 15:45] VITALS: BP 111/61; PULSE 70; RESP 17; TEMP 97.8; O2SAT 99
[2017-09-04 20:10] VITALS: BP 111/59; PULSE 88; RESP 16; TEMP 97.4; O2SAT 100
[2017-09-04] MEDS: BACITRACIN TOP OINT 15 GM TUBE TOP SCH (20:37)
[2017-09-05] VITALS (9 sets, daily range): BP systolic 105–141; BP diastolic 57–72; PULSE 72–85; RESP 16–18; TEMP 97.2–98.4; O2SAT 97–100
[2017-09-05 04:04] LABS: AUTOMATED NEUTROPHIL # 8.6 TH/MM3 (1.8-7.7); BASOPHIL # 0.1 TH/MM3 (0-0.2); BASOPHIL % 0.7 % (0.0-2.0); EOSINOPHIL % 8.2 % (0.0-4.0); HEMATOCRIT 31.3 % (39.0-51.0); HEMOGLOBIN 10.3 GM/DL (13.0-17.0); LYMPH % 11.5 % (9.0-44.0); LYMPHOCYTE # 1.4 TH/MM3 (1.0-4.8); MEAN CORPUSCULAR HEMOGLOBIN 28.9 PG (27.0-34.0); MEAN CORPUSCULAR HGB CONC 32.8 % (32.0-36.0); MEAN PLATELET VOLUME 8.7 FL (7.0-11.0); MONO % 7.9 % (0.0-8.0); MONOCYTE # 0.9 TH/MM3 (0-0.9); NEUT % 71.7 % (16.0-70.0); PLATELET COUNT 362 TH/MM3 (150-450); RED BLOOD COUNT 3.56 MIL/MM3 (4.50-5.90); RED CELL DISTRIBUTION WIDTH 16.5 % (11.6-17.2); WHITE BLOOD COUNT 11.9 TH/MM3 (4.0-11.0)
[2017-09-05 04:23] LABS: BICARBONATE 25.3 MEQ/L (21.0-32.0); CALCIUM 8.6 MG/DL (8.5-10.1); CREATININE 1.06 MG/DL (0.60-1.30)
[2017-09-05] MEDS: LACTATED RINGER'S 1000 ML INJ 1,000 ML IV SCH (05:34)
[2017-09-05] MEDS: PROPRANOLOL HCL 10 MG TAB PO SCH ×3 (05:34→21:02)
[2017-09-05] MEDS: DOCUSATE SODIUM 50 MG/SENNA 8.6 MG TAB PO SCH ×2 (08:33→21:02)
[2017-09-05] MEDS: FAMOTIDINE 20 MG TAB PO SCH ×2 (08:33→21:02)
[2017-09-05] MEDS: LACTULOSE SYRUP 20 GM/30 ML CUP PO SCH (08:33)
[2017-09-05] MEDS: VALPROIC ACID 250 MG CAP PO SCH ×2 (08:33→21:02)
[2017-09-05] MEDS: MAGNESIUM HYDROXIDE SUSP 30 ML CUP PO SCH ×2 (08:33→21:02)
[2017-09-05] MEDS: BISACODYL 10 MG SUPP RECTAL SCH (08:33)
[2017-09-05] MEDS: MEGESTROL ACETATE SUSP 400 MG/10 ML CUP PO SCH (08:34)
[2017-09-05] MEDS: SODIUM CHLORIDE FLUSH BID IV FLUSH SCH ×2 (08:36→21:03)
[2017-09-05] MEDS: BACITRACIN TOP OINT 15 GM TUBE TOP SCH ×2 (08:39→21:00)
[2017-09-05] MEDS: NEOMYCIN/POLYMYXIN/BACITRACIN OINT 15 GM TUBE TOPICAL SCH (08:39)
[2017-09-05 09:00] LABS: BANDS 3 % (0-6); BASOPHILS 2 % (0-2); LYMPHOCYTES 7 % (9-44); MONOCYTES 7 % (0-8); MYELOCYTES 1 % (0-0); NEUTROPHIL # MANUAL DIFF 9.3 TH/MM3 (1.8-7.7); POLYS (SEG NEUTROPHILS) 74 % (16-70)
[2017-09-05] MEDS: ENOXAPARIN SODIUM 40 MG/0.4 ML SYRINGE SQ SCH (11:21)
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
[2017-09-05] MEDS ORDERED: ENOX40P SQ (16:00)
[2017-09-05] MEDS ORDERED: CLON.1T T-DERMAL (16:00)
[2017-09-05] MEDS ORDERED: AMLO10 PO (16:00)
[2017-09-05] MEDS ORDERED: BISA10R RECTAL (16:00)
[2017-09-05] MEDS ORDERED: ACET325T15 PO (16:00)
[2017-09-05] MEDS ORDERED: Megestrol Liq PO (16:32)
[2017-09-06] VITALS (9 sets, daily range): BP systolic 109–134; BP diastolic 52–68; PULSE 72–92; RESP 16–20; TEMP 97.3–98.4; O2SAT 96–100
[2017-09-06] MEDS: PROPRANOLOL HCL 10 MG TAB PO SCH ×3 (06:00→22:43)
[2017-09-06] MEDS ORDERED: PROP10TA6 PO (08:13)
[2017-09-06] MEDS ORDERED: VALP250 PO (08:13)
[2017-09-06] MEDS ORDERED: FAMO20TA2 PO (08:13)
[2017-09-06] MEDS: VALPROIC ACID 250 MG CAP PO SCH ×2 (08:33→19:52)
[2017-09-06] MEDS: LACTULOSE SYRUP 20 GM/30 ML CUP PO SCH (08:33)
[2017-09-06] MEDS: MAGNESIUM HYDROXIDE SUSP 30 ML CUP PO SCH ×2 (08:33→19:52)
[2017-09-06] MEDS: FAMOTIDINE 20 MG TAB PO SCH ×2 (08:33→19:52)
[2017-09-06] MEDS: MEGESTROL ACETATE SUSP 400 MG/10 ML CUP PO SCH ×2 (08:33→08:39)
[2017-09-06] MEDS: BISACODYL 10 MG SUPP RECTAL SCH (08:33)
[2017-09-06] MEDS: DOCUSATE SODIUM 50 MG/SENNA 8.6 MG TAB PO SCH ×2 (08:33→19:52)
[2017-09-06] MEDS: NEOMYCIN/POLYMYXIN/BACITRACIN OINT 15 GM TUBE TOPICAL SCH (08:34)
[2017-09-06] MEDS: BACITRACIN TOP OINT 15 GM TUBE TOP SCH ×2 (08:37→19:52)
[2017-09-06] MEDS: SODIUM CHLORIDE FLUSH BID IV FLUSH SCH ×2 (08:37→19:52)
[2017-09-06] MEDS: ENOXAPARIN SODIUM 40 MG/0.4 ML SYRINGE SQ SCH (12:21)
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
[2017-09-07 00:24] VITALS: BP 137/63; PULSE 81; RESP 18; TEMP 98; O2SAT 99
[2017-09-07] MEDS: PROPRANOLOL HCL 10 MG TAB PO SCH ×3 (05:59→22:08)
[2017-09-07 07:41] VITALS: BP 120/55; PULSE 67; RESP 18; TEMP 97.6; O2SAT 98
[2017-09-07] MEDS: VALPROIC ACID 250 MG CAP PO SCH ×2 (07:50→20:19)
[2017-09-07] MEDS: FAMOTIDINE 20 MG TAB PO SCH ×2 (07:50→20:19)
[2017-09-07] MEDS: DOCUSATE SODIUM 50 MG/SENNA 8.6 MG TAB PO SCH ×2 (07:51→20:20)
[2017-09-07] MEDS: MEGESTROL ACETATE SUSP 400 MG/10 ML CUP PO SCH (07:51)
[2017-09-07] MEDS: BISACODYL 10 MG SUPP RECTAL SCH (07:51)
[2017-09-07] MEDS: MAGNESIUM HYDROXIDE SUSP 30 ML CUP PO SCH ×2 (07:51→20:20)
[2017-09-07] MEDS: SODIUM CHLORIDE FLUSH BID IV FLUSH SCH ×2 (07:52→20:19)
[2017-09-07] MEDS: LACTULOSE SYRUP 20 GM/30 ML CUP PO SCH (07:52)
[2017-09-07] MEDS: BACITRACIN TOP OINT 15 GM TUBE TOP SCH ×2 (07:53→20:20)
[2017-09-07] MEDS: NEOMYCIN/POLYMYXIN/BACITRACIN OINT 15 GM TUBE TOPICAL SCH (07:53)
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
[2017-09-07] MEDS: ENOXAPARIN SODIUM 40 MG/0.4 ML SYRINGE SQ SCH (11:14)
[2017-09-07 11:37] VITALS: BP 112/59; PULSE 75; RESP 18; TEMP 98.2; O2SAT 99
[2017-09-07 15:10] VITALS: BP 118/56; PULSE 84; RESP 18; TEMP 97.1; O2SAT 100
[2017-09-07 20:00] VITALS: BP 144/67; PULSE 82; RESP 18; TEMP 98.3; O2SAT 98
[2017-09-08] VITALS (7 sets, daily range): BP systolic 120–145; BP diastolic 61–70; PULSE 93–106; RESP 18–20; TEMP 97.1–99; O2SAT 98–100
[2017-09-08] MEDS: PROPRANOLOL HCL 10 MG TAB PO SCH ×3 (05:27→22:14)
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
[2017-09-08] MEDS: FAMOTIDINE 20 MG TAB PO SCH ×2 (08:50→22:10)
[2017-09-08] MEDS: DOCUSATE SODIUM 50 MG/SENNA 8.6 MG TAB PO SCH ×2 (08:51→22:10)
[2017-09-08] MEDS: MAGNESIUM HYDROXIDE SUSP 30 ML CUP PO SCH ×2 (08:51→22:10)
[2017-09-08] MEDS: VALPROIC ACID 250 MG CAP PO SCH ×2 (08:51→22:11)
[2017-09-08] MEDS: SODIUM CHLORIDE FLUSH BID IV FLUSH SCH ×2 (08:51→22:11)
[2017-09-08] MEDS: LACTULOSE SYRUP 20 GM/30 ML CUP PO SCH (08:51)
[2017-09-08] MEDS: MEGESTROL ACETATE SUSP 400 MG/10 ML CUP PO SCH (08:51)
[2017-09-08] MEDS: BACITRACIN TOP OINT 15 GM TUBE TOP SCH ×2 (08:52→22:17)
[2017-09-08] MEDS: NEOMYCIN/POLYMYXIN/BACITRACIN OINT 15 GM TUBE TOPICAL SCH (08:52)
[2017-09-08] MEDS: BISACODYL 10 MG SUPP RECTAL SCH (08:52)
[2017-09-08] MEDS: REMOVE OLD CATAPRES (CLONIDINE) PATCH T-DERMAL SCH (11:00)
[2017-09-08] MEDS: ENOXAPARIN SODIUM 40 MG/0.4 ML SYRINGE SQ SCH (11:58)
[2017-09-08] MEDS: cloNIDine HCL 0.1 MG/24 HR PATCH T-DERMAL SCH (11:58)
[2017-09-09] VITALS: BP 116/58; PULSE 97; RESP 20; TEMP 98.7; O2SAT 97
[2017-09-09] MEDS: PROPRANOLOL HCL 10 MG TAB PO SCH ×3 (07:46→22:00)
[2017-09-09 08:01] VITALS: BP 114/62; PULSE 80; RESP 17; TEMP 98.7; O2SAT 98
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
[2017-09-09] MEDS: BISACODYL 10 MG SUPP RECTAL SCH (09:00)
[2017-09-09] MEDS: MAGNESIUM HYDROXIDE SUSP 30 ML CUP PO SCH ×2 (09:00→20:32)
[2017-09-09] MEDS: LACTULOSE SYRUP 20 GM/30 ML CUP PO SCH (09:00)
[2017-09-09] MEDS: MEGESTROL ACETATE SUSP 400 MG/10 ML CUP PO SCH (09:06)
[2017-09-09] MEDS: VALPROIC ACID 250 MG CAP PO SCH ×2 (09:06→20:32)
[2017-09-09] MEDS: FAMOTIDINE 20 MG TAB PO SCH ×2 (09:06→20:32)
[2017-09-09] MEDS: DOCUSATE SODIUM 50 MG/SENNA 8.6 MG TAB PO SCH ×2 (09:06→20:32)
[2017-09-09] MEDS: ENOXAPARIN SODIUM 40 MG/0.4 ML SYRINGE SQ SCH (09:07)
[2017-09-09] MEDS: NEOMYCIN/POLYMYXIN/BACITRACIN OINT 15 GM TUBE TOPICAL SCH (09:10)
[2017-09-09] MEDS: SODIUM CHLORIDE FLUSH BID IV FLUSH SCH ×2 (09:10→20:33)
[2017-09-09] MEDS: BACITRACIN TOP OINT 15 GM TUBE TOP SCH ×2 (09:11→20:34)
[2017-09-09 12:01] VITALS: BP 121/58; PULSE 83; RESP 17; TEMP 97.5; O2SAT 99
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
--- NOTE | 2017-09-09 14:44 | PD.PLAS.PN ---
Subjective Remarks Patient has no complaints regarding his scalp or left ear. Vital Signs Date Time Temp Pulse Resp B/P (MAP) Pulse Ox O2 Delivery O2 Flow Rate FiO2 09/09/17 12:01 97.5 83 17 121/58 (79) 99 09/09/17 08:01 98.7 80 17 114/62 (79) 98 09/09/17 08:00 Room Air 09/09/17 00:00 98.7 97 20 116/58 (77) 97 09/08/17 20:00 97.6 105 20 122/67 (85) 99 09/08/17 16:20 98.4 106 18 130/61 (84) 100 09/08/17 15:20 97.2 105 18 128/61 (83) 100 I/O 09/08/17 09/08/17 09/08/17 09/09/17 09/09/17 09/09/17 07:00 15:00 23:00 07:00 15:00 23:00 Intake Total 240 ml 720 ml Output Total 1325 ml Balance -1085 ml 720 ml Intake Oral 240 ml 720 ml Output Urine Total 1325 ml # Voids 2 2 # Bowel Movements 0 0 0 Date/Time Source Procedure Growth Status 08/27/17 13:25 Blood Peripheral Aerobic Blood Culture - Final NO GROWTH IN 5 DAYS Complete 08/27/17 13:25 Blood Peripheral Anaerobic Blood Culture - Final NO GROWTH IN 5 DAYS Complete 08/14/17 03:00 Sputum Endotracheal Gram Stain - Final Complete 08/14/17 03:00 Sputum Endotracheal Sputum Culture - Final Complete 08/27/17 00:02 Urine Catheterized Urine Urine Culture - Final Escherichia Coli Complete Result Diagram: 09/05/17 0341 09/05/17 0341 Exam Findings The scalp wound has healed in well. The left ear wound has closed. Plan Impression: The wounds are almost completely healed. Plan: Will change to povidone-iodine ointment for the scalp. No further wound care is necessary for the left ear. Yaima Astorga MD September 09, 2017 14:44
[2017-09-09 15:48] VITALS: BP 111/57; PULSE 90; RESP 18; TEMP 97.7; O2SAT 100
[2017-09-09 20:00] VITALS: BP 125/59; PULSE 77; RESP 18; TEMP 97.4; O2SAT 99
[2017-09-10] VITALS: BP 118/58; PULSE 90; RESP 18; TEMP 97.6; O2SAT 97
[2017-09-10] MEDS: PROPRANOLOL HCL 10 MG TAB PO SCH (05:23)
[2017-09-10] MEDS ORDERED: POVI10OI TOPICAL (06:38)
[2017-09-10 08:00] VITALS: BP_SYST 115; BP_SYST 118; BP_DIAS 64; BP_DIAS 65; PULSE 102; PULSE 68; RESP 16; TEMP 97.6; TEMP 99; O2SAT 97
[2017-09-10] MEDS: MEGESTROL ACETATE SUSP 400 MG/10 ML CUP PO SCH (08:49)
[2017-09-10] MEDS: LACTULOSE SYRUP 20 GM/30 ML CUP PO SCH (08:50)
[2017-09-10] MEDS: VALPROIC ACID 250 MG CAP PO SCH (08:50)
[2017-09-10] MEDS: FAMOTIDINE 20 MG TAB PO SCH (08:50)
[2017-09-10] MEDS: MAGNESIUM HYDROXIDE SUSP 30 ML CUP PO SCH (08:50)
[2017-09-10] MEDS: DOCUSATE SODIUM 50 MG/SENNA 8.6 MG TAB PO SCH (08:50)
[2017-09-10] MEDS: BISACODYL 10 MG SUPP RECTAL SCH (08:51)
[2017-09-10] MEDS: BACITRACIN TOP OINT 15 GM TUBE TOP SCH (08:57)
[2017-09-10] MEDS ORDERED: POVIDONE IODINE 10% OINT 30 GM TUBE TOPICAL SCH (09:00)
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
== END 2017-09-10 10:06 | DRG 963 ==
LOC: NEPI 21:53 → EDBD 22:03 → NEDA 22:03 → N03A 22:52 → N06B 08-20 17:34 → N06A 08-20 19:22 → N03A 08-26 22:10 → N06A 08-29 20:15
PROVIDERS: ADMIT Surgery; ATTEND Surgery
PROC: 5A1955Z Respiratory Ventilation, Greater than 96 Consecutive Hours (ICD-10-PCS; principal; 2017-08-01)
PROC: 0BH17EZ Insertion of Endotracheal Airway into Trachea, Via Natural or Artificial Opening (ICD-10-PCS; 2017-08-01)
PROC: 0T9B70Z Drainage of Bladder with Drainage Device, Via Natural or Artificial Opening (ICD-10-PCS; 2017-08-02)
PROC: 0D9670Z Drainage of Stomach with Drainage Device, Via Natural or Artificial Opening (ICD-10-PCS; 2017-08-02)
PROC: 30233N1 Transfusion of Nonautologous Red Blood Cells into Peripheral Vein, Percutaneous Approach (ICD-10-PCS; 2017-08-05)
DX: S06.6X9A Traumatic subarachnoid hemorrhage with loss of consciousness of unspecified duration, initial encounter (principal); J96.00 Acute respiratory failure, unspecified whether with hypoxia or hypercapnia; S37.812A Contusion of adrenal gland, initial encounter; S37.019A Minor contusion of unspecified kidney, initial encounter; J69.0 Pneumonitis due to inhalation of food and vomit; S12.101A Unspecified nondisplaced fracture of second cervical vertebra, initial encounter for closed fracture; S37.031A Laceration of right kidney, unspecified degree, initial encounter; F01.51 Vascular dementia, unspecified severity, with behavioral disturbance; J98.11 Atelectasis; S01.01XA Laceration without foreign body of scalp, initial encounter; F02.81 Dementia in other diseases classified elsewhere, unspecified severity, with behavioral disturbance; S15.101A Unspecified injury of right vertebral artery, initial encounter; K62.5 Hemorrhage of anus and rectum; N39.0 Urinary tract infection, site not specified; S01.312A Laceration without foreign body of left ear, initial encounter; S06.5X9A Traumatic subdural hemorrhage with loss of consciousness of unspecified duration, initial encounter; S00.81XA Abrasion of other part of head, initial encounter; V03.10XA Pedestrian on foot injured in collision with car, pick-up truck or van in traffic accident, initial encounter; Z78.1 Physical restraint status; S09.8XXA Other specified injuries of head, initial encounter; K08.89 Other specified disorders of teeth and supporting structures; I10 Essential (primary) hypertension; K40.20 Bilateral inguinal hernia, without obstruction or gangrene, not specified as recurrent; R45.1 Restlessness and agitation; G31.9 Degenerative disease of nervous system, unspecified; R45.87 Impulsiveness; R63.0 Anorexia
CPT/HCPCS: 36430; 36600; 43752; 70450; 70486; 70498; 70548; 71045; 71260; 72125; 72129; 72132; 72141; 72170; 73030; 74177; 76937; 80048; 80053; 80202; 80307; 81001; 82550; 82552; 82805; 82948; 83735; 84100; 84132; 84484; 85007; 85014; 85018; 85025; 85027; 85384; 85610; 85730; 86403; 86850; 86900; 86901; 86920; 87040; 87070; 87077; 87086; 87147; 87186; 87205; 87641; 90471; 90715; 94002; 94003; 94150; 94640; 94664; 96365; 99291; A9579; C9113; G0390; J0131; J0690; J0696; J1630; J1650; J1940; J1953; J2405; J2543; J3010; J3370; J3480; J7030; J7050; J7120; L0150; L0172; P9016; Q9967